=== PATIENT | male | born 1980 | race Caucasian/White ===

== ENCOUNTER 2016-12-16 09:33 | Emergency (ER) | payer SELFPAY ==
--- NOTE | 2016-12-16 11:08 | ER Document Report ---
ED General - General Chief Complaint: Hand Pain Stated Complaint: RIGHT HAND INJURY TRAVEL OUTSIDE OF THE [place] IN LAST 30 DAYS: No - HPI Patient complains to provider of: right hand injury Notes: Patient states fell injuring his right hand night prior to arrival. Patient has swelling of the MCP joint of the fifth digit on the right hand. No obvious wounds. Denies any fevers chills nausea vomiting. - Related Data Allergies/Adverse Reactions: No Known Allergies Allergy (Verified 12/16/16 09:42) Past Medical History - Social History Smoking Status: Current Every Day Smoker Chew tobacco use (# tins/day): No Frequency of alcohol use: Social Drug Abuse: None Family History: Reviewed & Not Pertinent Patient has suicidal ideation: No Patient has homicidal ideation: No Renal/ Medical History: Denies: Hx Peritoneal Dialysis GI Medical History: Reports: Hx Diverticulitis Past Surgical History: Reports: Hx Orthopedic Surgery - right hand and left knee - Immunizations Hx Diphtheria, Pertussis, Tetanus Vaccination: Yes Review of Systems - Review of Systems Constitutional: No symptoms reported EENT: No symptoms reported Cardiovascular: No symptoms reported Respiratory: No symptoms reported Gastrointestinal: No symptoms reported Genitourinary: No symptoms reported Male Genitourinary: No symptoms reported Musculoskeletal: Other - Right hand pain and swelling Skin: No symptoms reported Hematologic/Lymphatic: No symptoms reported Neurological/Psychological: No symptoms reported Physical Exam - Vital signs Vitals: Temp Pulse Resp BP Pulse Ox 98.1 F 79 16 138/96 H 97 12/16/16 09:39 12/16/16 09:39 12/16/16 09:39 12/16/16 09:39 12/16/16 09:39 Interpretation: Normal - General General appearance: Appears well, Alert - HEENT Head: Normocephalic, Atraumatic Eyes: Normal Pupils: PERRL - Respiratory Respiratory status: No respiratory distress Chest status: Nontender Breath sounds: Normal Chest palpation: Normal - Cardiovascular Rhythm: Regular Heart sounds: Normal auscultation Murmur: No - Abdominal Inspection: Normal Distension: No distension Bowel sounds: Normal Tenderness: Nontender Organomegaly: No organomegaly - Back Back: Normal, Nontender - Extremities General upper extremity: Normal inspection, Tender - Patient has tenderness of the first joint of the fifth digit on the right hand with swelling there is no open wounds no signs of open fracture. Refill and range of motion are intact distal, Normal color, Normal ROM, Normal temperature General lower extremity: Normal inspection, Nontender, Normal color, Normal ROM , Normal temperature, Normal weight bearing. No: Tonny's sign - Neurological Neuro grossly intact: Yes Cognition: Normal Orientation: AAOx4 Millen Coma Scale Eye Opening: Spontaneous Marcus Coma Scale Verbal: Oriented Millen Coma Scale Motor: Obeys Commands Millen Coma Scale Total: 15 Speech: Normal Motor strength normal: LUE, RUE, LLE, RLE Sensory: Normal - Psychological Associated symptoms: Normal affect, Normal mood - Skin Skin Temperature: Warm Skin Moisture: Dry Skin Color: Normal Course - Re-evaluation Re-evalutation: 12/16/16 15:29 Patient placed in ulnar gutter splint for his fifth metacarpal fracture encouraged follow-up with orthopedics. Patient was given pain control discharged home - Vital Signs Vital signs: Temp Pulse Resp BP Pulse Ox 98.1 F 77 16 147/99 H 95 12/16/16 11:22 12/16/16 11:22 12/16/16 11:22 12/16/16 11:22 12/16/16 11:22 Discharge - Discharge Clinical Impression: Boxers fracture Qualifiers: Encounter type: initial encounter Fracture type: closed Qualified Code(s): S62.309A - Unspecified fracture of unspecified metacarpal bone, initial encounter for closed fracture Condition: Good Disposition: HOME, SELF-CARE Instructions: Fractured Fifth Metacarpal ([facility]) Additional Instructions: Please follow-up with orthopedic provided. Return to ER if pain increases. Please continue to wear splint until you see the orthopedic doctor. You may take Tylenol and Motrin for your pain the Vicodin prescribe this for severe pain Prescriptions: Hydrocodone Bit/Acetaminophen [Hydrocodon-Acetaminophen 5-325] 1 each PO Q6 #30 tablet Forms: Return to Work Referrals: BRIGITTE BECKER MD [ACTIVE STAFF] - Follow up as needed (Call today to set up a follow-up appointment)
[2016-12-16 11:34] VITALS: BP 147/99
== END 2016-12-16 11:30 | disposition home or self-care (01) ==
LOC: ER 09:33
PROC: 2W3CX1Z Immobilization of Right Lower Arm using Splint (ICD-10-PCS; principal; 2016-12-16)
DX: S62.336A Displaced fracture of neck of fifth metacarpal bone, right hand, initial encounter for closed fracture (principal); W19.XXXA Unspecified fall, initial encounter; F17.200 Nicotine dependence, unspecified, uncomplicated; Z98.890 Other specified postprocedural states
CPT/HCPCS: 99283

== ENCOUNTER 2017-08-13 22:49 | Inpatient (IN) | payer SELFPAY ==
[2017-08-13] MEDS ORDERED: NORMAL SALINE 500 ML IV ONE (22:56)
[2017-08-13] MEDS ORDERED: ONDANSETRON 4 MG TAB.RAPDIS PO ONE (23:22)
[2017-08-13] MEDS ORDERED: MORPHINE SULFATE 10 MG/ML INJ IV ONE (23:23)
--- NOTE | 2017-08-13 23:24 | ER Document Report ---
ED Medical Screen (RME) - General Chief Complaint: Upper Abdominal Pain Stated Complaint: UPPER RIGHT ABDOMINAL PAIN Time Seen by Provider: 08/13/17 23:18 Notes: Patient is a 37-year-old male presents emergency department complaining of right upper quadrant pain sudden onset this morning. He admits to sharp stabbing right upper quadrant pain with associated nausea and vomiting. Denies any blood or coffee-ground emesis. Admits to pain radiating into his back. Denies fever or chills. Does admit to diaphoresis with emesis. Otherwise denies any other past medical history, past chest or abdominal surgical history. Patient states he is a smoker, social alcohol use and denies any illicit drug use. TRAVEL OUTSIDE OF THE [place] IN LAST 30 DAYS: No - Related Data Allergies/Adverse Reactions: No Known Allergies Allergy (Verified 08/13/17 22:53) Past Medical History Renal/ Medical History: Denies: Hx Peritoneal Dialysis GI Medical History: Reports: Hx Diverticulitis Past Surgical History: Reports: Hx Orthopedic Surgery - right hand and left knee - Immunizations Hx Diphtheria, Pertussis, Tetanus Vaccination: Yes Physical Exam - Vital signs Vitals: Temp Pulse Resp BP Pulse Ox 97.9 F 84 20 127/100 H 98 08/13/17 22:56 08/13/17 22:56 08/13/17 22:56 08/13/17 22:56 08/13/17 22:56 - Respiratory Respiratory status: No respiratory distress Chest status: Nontender Breath sounds: Normal Chest palpation: Normal - Cardiovascular Rhythm: Regular Heart sounds: Normal auscultation, S1 appreciated, S2 appreciated Gallop: None auscultated - Abdominal Inspection: Normal Distension: No distension Bowel sounds: Normal Tenderness: Lugo's sign Organomegaly: No organomegaly Course - Vital Signs Vital signs: Temp Pulse Resp BP Pulse Ox 97.9 F 84 20 127/100 H 98 08/13/17 22:56 08/13/17 22:56 08/13/17 22:56 08/13/17 22:56 08/13/17 22:56
[2017-08-13 23:51] LABS: ABSOLUTE EOSINOPHILS # (AUTO) 0.1 10^3/uL (0.0-0.6); ABSOLUTE LYMPHOCYTES (AUTO) 1.2 10^3/uL (0.5-4.7); ABSOLUTE MONOCYTES (AUTO) 0.6 10^3/uL (0.1-1.4); ABSOLUTE NEUT (AUTO) 11.1 10^3/uL (1.7-8.2); BASOPHILS % (AUTO) 0.3 % (0-2); EOSINOPHILS % (AUTO) 0.5 % (0-6); HEMATOCRIT 48.7 % (37.9-51.0); HEMOGLOBIN 17.6 g/dL (13.5-17.0); LYMPHOCYTES % (AUTO) 9.3 % (13-45); MEAN CORPUSCULAR HEMOGLOBIN 35.5 pg (27.0-33.4); MEAN CORPUSCULAR HGB CONC 36.1 g/dL (32.0-36.0); MEAN CORPUSCULAR VOLUME 98 fl (80-97); RED BLOOD COUNT 4.95 10^6/uL (4.35-5.55); RED CELL DISTRIBUTION WIDTH 13.8 % (11.5-14.0); SEGMENTED NEUTROPHILS % (AUTO) 84.9 % (42-78); WHITE BLOOD COUNT 13.1 10^3/uL (4.0-10.5)
[2017-08-13 23:52] LABS: HGB HCT DIFFERENCE 4.1
[2017-08-14 00:08] LABS: ALANINE AMINOTRANSFERASE 109 U/L (21-72); ALBUMIN 4.9 g/dL (3.5-5.0); ALKALINE PHOSPHATASE 135 U/L (38-126); ANION GAP 17 (5-19); ASPARTATE AMINO TRANSFERASE 101 U/L (17-59); BILIRUBIN,DIRECT 0.5 mg/dL (0.0-0.4); BILIRUBIN,TOTAL 1.1 mg/dL (0.2-1.3); BLOOD UREA NITROGEN 16 mg/dL (7-20); CALCIUM 10.1 mg/dL (8.4-10.2); CARBON DIOXIDE 26 mmol/L (22-30); CHLORIDE 100 mmol/L (98-107); CREATININE RESULT 0.77 mg/dL (0.52-1.25); GLUCOSE 122 mg/dL (75-110); LIPASE 842.4 U/L (23-300); POTASSIUM 4.2 mmol/L (3.6-5.0); SODIUM 142.8 mmol/L (137-145)
--- NOTE | 2017-08-14 00:35 | RADIOLOGY REPORT (SQ) ---
EXAM DESCRIPTION: U/S ABDOMEN LIMITED W/O DOP COMPLETED DATE/TIME: 08/14/2017 12:23 am REASON FOR STUDY: RUQ pain with positive murphys COMPARISON: None. TECHNIQUE: Dynamic and static grayscale images acquired of the abdomen and recorded on PACS. Additio nal selected color Doppler and spectral images recorded. LIMITATIONS: None. FINDINGS: PANCREAS: No masses. No peripancreatic edema or fluid collections. LIVER: Echotexture is coarse with increased echogenicity consistent with fatty infiltration. LIVER VASCULATURE: Normal directional flow of the main portal vein and hepatic veins. GALLBLADDER: No stones. Normal wall thickness. No pericholecystic fluid. ULTRASOUND-DETECTED LUGO'S SIGN: Positive. INTRAHEPATIC DUCTS AND COMMON DUCT: CBD and intrahepatic ducts normal caliber. No filling defects. INFERIOR VENA CAVA: Normal flow. AORTA: No aneurysm. RIGHT KIDNEY: Normal size. Normal echogenicity. No solid or suspicious masses. No hydronephrosis. No calcifications. PERITONEAL AND RIGHT PLEURAL SPACE: No ascites or effusions. OTHER: No other significant finding. IMPRESSION: FATTY INFILTRATION OF THE LIVER. Positive ultrasound detected Lugo sign. No gallston es identified. TECHNICAL DOCUMENTATION: JOB ID: [id number] [employer]- All Rights Reserved
--- NOTE | 2017-08-14 01:04 | ER Document Report ---
ED GI/ - General Chief Complaint: Upper Abdominal Pain Stated Complaint: UPPER RIGHT ABDOMINAL PAIN Time Seen by Provider: 08/13/17 23:18 Notes: Patient is a 37 year old male with sudden onset RUQ pain this am that has gotten progressively worse. Admits to nausea and vomiting with worsening right upper quadrant pain. Otherwise healthy male. Denies any previous medical issues, past surgical history. Is a current smoker but denies daily alcohol or drug use. TRAVEL OUTSIDE OF THE [place] IN LAST 30 DAYS: No - Related Data Allergies/Adverse Reactions: No Known Allergies Allergy (Verified 08/13/17 22:53) Past Medical History - Social History Smoking Status: Unknown if Ever Smoked Family History: Reviewed & Not Pertinent Renal/ Medical History: Denies: Hx Peritoneal Dialysis GI Medical History: Reports: Hx Diverticulitis Past Surgical History: Reports: Hx Orthopedic Surgery - right hand and left knee - Immunizations Hx Diphtheria, Pertussis, Tetanus Vaccination: Yes Review of Systems - Review of Systems Constitutional: No symptoms reported Cardiovascular: No symptoms reported Respiratory: No symptoms reported Gastrointestinal: See HPI -: Yes All other systems reviewed and negative Physical Exam - Vital signs Vitals: Temp Pulse Resp BP Pulse Ox 97.9 F 84 20 127/100 H 98 08/13/17 22:56 08/13/17 22:56 08/13/17 22:56 08/13/17 22:56 08/13/17 22:56 - Notes Notes: PHYSICAL EXAM GENERAL: Alert, interacts well. LUNGS: Clear to auscultation bilaterally, no wheezes, rales, or rhonchi. No respiratory distress. HEART: Regular rate and rhythm. No murmurs, gallops, or rubs. ABDOMEN: Soft, nondistended, positive Lugo sign, right upper quadrant tenderness. No edema, radial and dorsalis pedis pulses 2/4 bilaterally. No cyanosis. NEUROLOGICAL: Alert and oriented x4. Normal speech. PSYCH: Normal affect, normal mood. SKIN: Warm, dry, normal turgor. No rashes or lesions noted. Course - Re-evaluation Re-evalutation: 08/13/17 23:30 Patient is a 37-year-old male who is hemodynamically stable, no acute distress afebrile. Elevated white count of 13 with evidence of left shift. Chemistry panel concerning for common bile duct stone versus ascending cholangitis. Patient with elevated AST, ALT, alk phos with lipase of 842 but preserved bilirubin. No evidence of obstructing stone on ultrasound. Discussed case with surgeon Dr. monroe who recommends admission, n.p.o. status, MRCP IV antibiotics and fluids..discussed with the patient who agrees for hospital admission - Vital Signs Vital signs: Temp Pulse Resp BP Pulse Ox 97.9 F 84 20 127/100 H 98 08/13/17 22:56 08/13/17 22:56 08/13/17 22:56 08/13/17 22:56 08/13/17 22:56 - Laboratory Result Diagrams: 08/13/17 23:30 08/13/17 23:30 Laboratory results interpreted by me: 08/13/17 08/13/17 23:30 23:30 WBC 13.1 H Hgb 17.6 H MCV 98 H MCH 35.5 H MCHC 36.1 H Seg Neutrophils % 84.9 H Lymphocytes % 9.3 L Absolute Neutrophils 11.1 H Glucose 122 H Direct Bilirubin 0.5 H AST 101 H ALT 109 H Alkaline Phosphatase 135 H Lipase 842.4 H - Diagnostic Test Radiology reviewed: Reports reviewed Discharge - Discharge Clinical Impression: Cholecystitis Pancreatitis Qualifiers: Chronicity: acute Pancreatitis type: unspecified pancreatitis type Acute pancreatitis complication: unspecified Qualified Code(s): K85.90 - Acute pancreatitis without necrosis or infection, unspecified Condition: Stable Disposition: ADMITTED INPATIENT Unit Admitted: Surgical Floor - [place]
[2017-08-14] MEDS ORDERED: LEVOFLOXACIN 750 MG/D5W RTU 750 MG/150 ML RTUPB IV ONE (01:28)
[2017-08-14] MEDS ORDERED: HYDROMORPHONE HCL INJ/PF 2 MG/ML AMPULE IV ONE (01:35)
[2017-08-14] MEDS ORDERED: DEXTROSE 5%-1/2 NORMAL SALINE 1,000 ML with POTASSIUM CHLORIDE 20 MEQ IV PRN ×4 (01:38→01:56)
[2017-08-14] MEDS: HYDROMORPHONE HCL INJ/PF 2 MG/ML AMPULE IV PRN ×7 (02:26→22:10)
[2017-08-14] MEDS: ONDANSETRON HCL INJ/PF 4 MG/2 ML SDV IV PRN ×2 (02:27→09:07)
[2017-08-14 03:44] LABS: AMORPHOUS SEDIMENT,URINE TRACE /HPF; APPEARANCE,URINE SLIGHTLY-CLOUDY; BILIRUBIN,URINE SMALL (NEGATIVE); GLUCOSE, URINE NEGATIVE (NEGATIVE); KETONES,URINE 20 mg/dL (NEGATIVE); LEUKOCYTE ESTERASE,URINE NEGATIVE (NEGATIVE); NITRITE,URINE NEGATIVE (NEGATIVE); PROTEIN,URINE 100 mg/dL (NEGATIVE)
[2017-08-14] MEDS ORDERED: POTASSI CL 20 MEQ/50 ML RIDER 0 MEQ/0 ML RTUPB IV ONE (04:17)
[2017-08-14] MEDS ORDERED: DEXTROSE 5%-1/2 NORMAL SALINE 1,000 ML with POTASSIUM CHLORIDE 20 MEQ IV SCH ×2 (04:30)
[2017-08-14] MEDS: POTASSI CL 20 MEQ/D5-1/2NS 1L 1000 ML IV PRN ×3 (04:58→15:50)
[2017-08-14] MEDS ORDERED: KETOROLAC TROMETHAMINE INJ/PF 30 MG/1 ML SDV IV ONE (05:00)
[2017-08-14] MEDS ORDERED: NORMAL SALINE 1000 ML 250 ML IV ONE (06:31)
[2017-08-14] MEDS ORDERED: MAG HYDROX/AL HYDROX/SIMETH SUSP 30 ML UDCUP PO ONE (06:58)
--- NOTE | 2017-08-14 07:13 | HISTORY AND PHYSICAL E ---
History and Physical NAME: MO SANCHEZ : 1980 AGE: 37Y ADMITTED: 08/14/2017 ROOM: ED14 HISTORY OF PRESENT ILLNESS: The patient is a 37-year-old male patient presenting to emergency room with history of acute abdominal pain from last night, also with nausea. The pain is mostly in the right upper quadrant area and pelvic area. *------* The patient did have similar pain about several months ago and did not have any workup at that point. The patient occasionally drinks alcohol. Otherwise, no major medical problems. PAST SURGICAL HISTORY: None. REVIEW OF SYSTEMS: As per examination. PHYSICAL EXAMINATION: GENERAL: He is pleasant 37-year-old male patient, not in any distress. VITAL SIGNS: Afebrile. HEAD AND NECK EXAMINATION: No lymphadenopathy, no masses. RESPIRATORY EXAMINATION: Both lungs are clear to auscultation. CARDIOVASCULAR EXAMINATION: Heart sounds are regular, no murmurs, no gallops. ABDOMINAL EXAMINATION: Soft, tender in the upper abdomen and right upper quadrant area. No palpable masses. No palpable hernia. EXTREMITIES: Warm and well perfused. LABORATORY: White count 13.1, hemoglobin 17. *------* Sodium 142, BUN 16, creatinine 0.77, total bilirubin 2151, direct 0.5. ALT slightly elevated at 109, alkaline phosphatase 135, slightly elevated, lipase 142. He had an abnormal ultrasound, which reveals tenderness in the right upper quadrant area. No gallstones were seen. IMPRESSION: Overall pancreatitis. Uncertain whether he passed a stone. PLAN: Admission, IV hydration, start him on Levaquin. Order an MRCP to evaluate the pancreas. Based on that, further management will be planned. DICTATING PHYSICIAN: GAGANDEEP BUSTILLOS M.D. [id number] PHY#: [id number] ID: [id number] JOB#: [id number] ACCT: [id number] cc: >
--- NOTE | 2017-08-14 10:26 | RADIOLOGY REPORT (SQ) ---
EXAM DESCRIPTION: SKULL 1-3 VIEWS COMPLETED DATE/TIME: 08/14/2017 10:16 am REASON FOR STUDY: foreign body eval COMPARISON: None. NUMBER OF VIEWS: Two view. TECHNIQUE: Images of the skull acquired. LIMITATIONS: None. FINDINGS: ORBITS: No fracture. No foreign body. SINUSES: No mucosal thickening. No air fluid levels. FACIAL BONES: No fracture. OTHER: The calvarium is intact. IMPRESSION: No radiopaque foreign body is seen. TECHNICAL DOCUMENTATION: JOB ID: [id number]- All Rights Reserved
--- NOTE | 2017-08-14 10:55 | RADIOLOGY REPORT (SQ) ---
EXAM DESCRIPTION: MRI ABDOMEN WITHOUT COMPLETED DATE/TIME: 08/14/2017 10:41 am REASON FOR STUDY: pancreatitis , needs MRCP COMPARISON: None. TECHNIQUE: Noncontrast MRCP. Source and MIP images reviewed. LIMITATIONS: None. FINDINGS: GALLBLADDER: Normal. INTRAHEPATIC DUCTS: Nondilated. EXTRAHEPATIC DUCTS: Common duct is normal caliber. No dilatation of the pancreatic duct. No ductal filling defects noted. PANCREAS: Generally homogeneous, no gross mass or significant signal alteration. No surrounding infl ammatory changes or fluid. Pancreatic duct is normal. LIVER, SPLEEN, KIDNEYS, ADRENALS: No significant abnormality. VESSELS: No evidence of aneurysm. Grossly appropriate flow voids in the major vascular structures. LUNG BASES: Grossly clear. OTHER: No other significant finding. IMPRESSION: Normal MRCP. TECHNICAL DOCUMENTATION: JOB ID: [id number] [employer]- All Rights Reserved
--- NOTE | 2017-08-14 15:43 | PROGRESS NOTE E ---
Progress Note NAME: MO SANCHEZ : 1980 AGE: 37Y DATE: 08/14/2017 ROOM: 419 SUBJECTIVE: The patient has had persisting abdominal pain today. He did have a MRCP which was grossly unremarkable. No nausea or vomiting. PHYSICAL EXAMINATION: VITAL SIGNS: Stable. GENERAL: The patient in general is in mild distress. ABDOMEN: Examined. Minimal right upper quadrant tenderness with mild guarding. No peritoneal signs. No rigidity. IMAGING STUDIES: As described above. IMPRESSION: ABDOMINAL PAIN OF INEXACT ETIOLOGY, SUSPECT GASTRITIS VERSUS MILD PANCREATITIS WITH POSSIBLE ALCOHOL ABUSE COMPONENT; NO EVIDENCE OF ACUTE CHOLECYSTITIS, CHOLEDOCHOLITHIASIS. RECOMMENDATIONS: 1. Will obtain lipase level in the morning. 2. We will keep on ice chips for now. 3. Explained to patient and significant other that there are no plans for surgical intervention at this time. DICTATING PHYSICIAN: LESIA CANTRELL M.D. [id number] PHY#: [id number] ID: [id number] JOB#: [id number] ACCT: [id number] cc: >
--- NOTE | 2017-08-14 17:54 | PDOC CONSULTATION ---
Consultation Consult Date: 08/14/17 Attending physician:: LESIA CANTRELL Consult reason:: Possible delirium tremens History of Present Illness Admission Date/PCP: 08/14/17 13:55 History of Present Illness: MO SANCHEZ is a 37 year old male Past Medical History Cardiac Medical History: Reports: None Pulmonary Medical History: Reports: None EENT Medical History: Reports: None Neurological Medical History: Reports: None Endocrine Medical History: Reports: None Renal/ Medical History: Reports: None Malignancy Medical History: Reports: None GI Medical History: Reports: Diverticulitis Musculoskeltal Medical History: Reports: None Skin Medical History: Reports: None Psychiatric Medical History: Reports: Alcohol Dependency Hematology: Reports: None Infectious Medical History: Reports: None Past Surgical History Past Surgical History: Reports: Orthopedic Surgery - right hand and left knee Social History Information Source: Patient Lives with: Spouse/Significant other Smoking Status: Current Some Day Smoker Cigarettes Packs Per Day: 1 Number of Years Smokin Frequency of Alcohol Use: Occasional - 3 drinks per day Hx Recreational Drug Use: Yes Drugs: Marijuana Hx Prescription Drug Abuse: No - Advance Directive Resuscitation Status: Full Code Family History Family History: Father in his 50s from traumatic injury. Mother is in her 50s and is healthy. Parental Family History Reviewed: Yes Children Family History Reviewed: No Sibling(s) Family History Reviewed.: No Medication/Allergy Home Medications: No Home Medications 08/14/17 Allergies/Adverse Reactions: No Known Allergies Allergy (Verified 08/13/17 22:53) Review of Systems Constitutional: ABSENT: chills, fever(s), headache(s), weight gain, weight loss Eyes: ABSENT: visual disturbances Ears: ABSENT: hearing changes Cardiovascular: ABSENT: chest pain, dyspnea on exertion, edema, orthropnea, palpitations Respiratory: ABSENT: cough, hemoptysis Gastrointestinal: PRESENT: abdominal pain, nausea. ABSENT: constipation, diarrhea, hematemesis, hematochezia, vomiting Genitourinary: ABSENT: dysuria, hematuria Musculoskeletal: PRESENT: back pain. ABSENT: joint swelling Integumentary: ABSENT: rash, wounds Neurological: PRESENT: other - Has been tremulous Psychiatric: ABSENT: anxiety, depression Endocrine: ABSENT: cold intolerance, heat intolerance, polydipsia, polyuria Hematologic/Lymphatic: ABSENT: easy bleeding, easy bruising Physical Exam Vital Signs: Temp Pulse Resp BP Pulse Ox 98.4 F 76 18 128/84 H 98 08/14/17 12:05 08/14/17 12:05 08/14/17 12:05 08/14/17 12:05 08/14/17 12:05 Intake & Output 08/13/17 08/14/17 08/15/17 06:59 06:59 06:59 Intake Total 0 Balance 0 General appearance: PRESENT: no acute distress, well-developed, well-nourished Head exam: PRESENT: atraumatic, normocephalic Eye exam: PRESENT: conjunctiva pink, EOMI, PERRLA. ABSENT: scleral icterus Ear exam: PRESENT: normal external ear exam Mouth exam: PRESENT: moist, tongue midline Neck exam: ABSENT: carotid bruit, JVD, lymphadenopathy, thyromegaly Respiratory exam: PRESENT: clear to auscultation magnolia. ABSENT: rales, rhonchi, wheezes Cardiovascular exam: PRESENT: RRR. ABSENT: diastolic murmur, rubs, systolic murmur Pulses: PRESENT: normal dorsalis pedis pul Vascular exam: PRESENT: normal capillary refill GI/Abdominal exam: PRESENT: normal bowel sounds, soft, tenderness - Mild epigastric tenderness. ABSENT: distended, guarding, mass, organolmegaly, rebound Rectal exam: PRESENT: deferred Extremities exam: ABSENT: calf tenderness, clubbing, pedal edema Neurological exam: PRESENT: alert, awake, oriented to person, oriented to place , oriented to time, oriented to situation, CN II-XII grossly intact, other - Tremulous. ABSENT: motor sensory deficit Psychiatric exam: PRESENT: appropriate affect Skin exam: PRESENT: dry, intact, warm. ABSENT: cyanosis, rash Results Impressions: Abdomen Ultrasound 08/13/17 23:22 IMPRESSION: FATTY INFILTRATION OF THE LIVER. Positive ultrasound detected Lugo sign. No gallstones identified. Abdomen MRI 08/14/17 00:00 IMPRESSION: Normal MRCP. Skull X-Ray 08/14/17 00:00 IMPRESSION: No radiopaque foreign body is seen. Assessment & Plan - Diagnosis (1) Alcohol use disorder, mild, abuse Is this a current diagnosis for this admission?: Yes Plan: The patient is somewhat tremulous. Will start him on Raoul Ativan in addition we will also give as needed Ativan. (2) Pancreatitis Qualifiers: Chronicity: acute Pancreatitis type: unspecified pancreatitis type Acute pancreatitis complication: unspecified Qualified Code(s): K85.90 - Acute pancreatitis without necrosis or infection, unspecified Is this a current diagnosis for this admission?: Yes Plan: This is being managed by surgery. Patient is n.p.o. and given IV fluids. - Time Time Spent: 50 to 70 Minutes - Inpatient Certification Medical Necessity: Need For IV Fluids, Need for Pain Control
[2017-08-14] MEDS: LORAZEPAM INJ 2 MG/1 ML VIAL IV PRN (17:58)
[2017-08-14] MEDS: LORAZEPAM 1 MG TABLET PO SCH ×2 (18:00→23:59)
[2017-08-14] MEDS: LEVOFLOXACIN 750 MG/D5W RTU 750 MG/150 ML RTUPB IV SCH (21:01)
[2017-08-15] MEDS: HYDROMORPHONE HCL INJ/PF 2 MG/ML AMPULE IV PRN ×7 (02:10→22:19)
[2017-08-15] MEDS: POTASSI CL 20 MEQ/D5-1/2NS 1L 1000 ML IV PRN ×2 (02:15→13:19)
[2017-08-15] MEDS: LORAZEPAM 1 MG TABLET PO SCH ×3 (05:21→17:46)
[2017-08-15] MEDS ORDERED: NORMAL SALINE 1000 ML 1,000 ML with THIAMINE HCL 100 MG, MVI, ADULT NO.1 WITH VIT K 10 ... IV PRN ×4 (09:01)
--- NOTE | 2017-08-15 09:07 | PDOC PROGRESS REPORT ---
Subjective Progress Note for:: 08/15/17 Subjective:: Patient pain goes on and off. Tremors improved with Ativan. Patient reports symptoms started after moderate drinking with friends at home with alcohol. Denies chills or fever. There is no diarrhea. Patient remains n.p.o. Abdominal pain slightly improved. Physical Exam Vital Signs: Temp Pulse Resp BP Pulse Ox 98.6 F 82 17 134/92 H 98 08/15/17 07:46 08/15/17 07:46 08/15/17 07:46 08/15/17 07:46 08/15/17 07:46 Intake & Output 08/14/17 08/15/17 08/16/17 06:59 06:59 06:59 Intake Total 2452 Balance 2452 General appearance: PRESENT: no acute distress, cooperative Head exam: PRESENT: normocephalic Eye exam: PRESENT: EOMI Mouth exam: PRESENT: moist, neck supple Neck exam: ABSENT: JVD Respiratory exam: PRESENT: clear to auscultation magnolia Cardiovascular exam: PRESENT: RRR GI/Abdominal exam: PRESENT: soft, tenderness - Epigastric and periumbilical. ABSENT: distended Extremities exam: ABSENT: pedal edema Neurological exam: PRESENT: alert, awake, oriented to situation Skin exam: PRESENT: dry, warm. ABSENT: cyanosis Results Laboratory Results: 08/15/17 04:50 Lipase 1060.3 H Impressions: Abdomen Ultrasound 08/13/17 23:22 IMPRESSION: FATTY INFILTRATION OF THE LIVER. Positive ultrasound detected Lugo sign. No gallstones identified. Abdomen MRI 08/14/17 00:00 IMPRESSION: Normal MRCP. Skull X-Ray 08/14/17 00:00 IMPRESSION: No radiopaque foreign body is seen. Assessment & Plan - Diagnosis (1) Alcohol use disorder, mild, abuse Is this a current diagnosis for this admission?: Yes (2) Pancreatitis Qualifiers: Chronicity: acute Pancreatitis type: unspecified pancreatitis type Acute pancreatitis complication: unspecified Qualified Code(s): K85.90 - Acute pancreatitis without necrosis or infection, unspecified Is this a current diagnosis for this admission?: Yes (3) Transaminitis Is this a current diagnosis for this admission?: Yes - Time Time Spent with patient: 25-34 minutes - Plan Summary Plan Summary: Keep the patient n.p.o. Recheck WBC amylase and lipase in the morning as well as electrolytes. Continue IV fluids. Continue Ativan. Begin supplemental thiamine folic acid and multivitamin. Continue supportive care.
--- NOTE | 2017-08-15 10:38 | PROGRESS NOTE E ---
Progress Note NAME: MO SANCHEZ : 1980 AGE: 37Y DATE: 08/15/2017 ROOM: 419 SUBJECTIVE: The patient's abdominal pain seems to have subsided. He denies any daily alcohol intake. OBJECTIVE: He is alert and oriented x3. His lipase this morning went up from 842 to 1060 this morning. PLAN: I will keep him n.p.o. for the time being and repeat all the blood work in the a.m. Continue for preventive withdrawal symptoms. I will ask Medicine to take over patient's care. DICTATING PHYSICIAN: NATALIE WALKER M.D. [id number] PHY#: [id number] ID: [id number] JOB#: [id number] ACCT: [id number] cc: >
[2017-08-15] MEDS ORDERED: NORMAL SALINE 1000 ML 1,000 ML with THIAMINE HCL 100 MG, MVI, ADULT NO.1 WITH VIT K 10 ... IV ONE ×4 (18:00)
[2017-08-15] MEDS ORDERED: LANSOPRAZOLE 30 MG TAB.RAP.DR PO ONE (20:00)
[2017-08-15] MEDS: LEVOFLOXACIN 750 MG/D5W RTU 750 MG/150 ML RTUPB IV SCH (22:19)
[2017-08-16] MEDS: LORAZEPAM 1 MG TABLET PO SCH ×5 (00:33→23:29)
[2017-08-16] MEDS: HYDROMORPHONE HCL INJ/PF 2 MG/ML AMPULE IV PRN ×8 (01:24→23:29)
[2017-08-16] MEDS: LANSOPRAZOLE 30 MG TAB.RAP.DR PO SCH ×2 (05:10→16:07)
[2017-08-16 05:11] LABS: HEMATOCRIT 40.5 % (37.9-51.0); HGB HCT DIFFERENCE 3.3; MEAN CORPUSCULAR VOLUME 98 fl (80-97); RED BLOOD COUNT 4.12 10^6/uL (4.35-5.55)
[2017-08-16 05:12] LABS: HEMOGLOBIN 14.6 g/dL (13.5-17.0); MEAN CORPUSCULAR HEMOGLOBIN 35.3 pg (27.0-33.4); RED CELL DISTRIBUTION WIDTH 13.2 % (11.5-14.0)
[2017-08-16 05:17] LABS: AMYLASE 136 U/L (30-110); ANION GAP 13 (5-19); BLOOD UREA NITROGEN 12 mg/dL (7-20); CALCIUM 9.3 mg/dL (8.4-10.2); CARBON DIOXIDE 24 mmol/L (22-30); CHLORIDE 103 mmol/L (98-107); CREATININE RESULT 0.76 mg/dL (0.52-1.25); GLUCOSE 82 mg/dL (75-110); LIPASE 857.6 U/L (23-300); POTASSIUM 4.6 mmol/L (3.6-5.0); SODIUM 139.6 mmol/L (137-145)
[2017-08-16] MEDS: POTASSI CL 20 MEQ/D5-1/2NS 1L 1000 ML IV PRN ×2 (07:07→17:49)
--- NOTE | 2017-08-16 09:54 | PDOC PROGRESS REPORT ---
Subjective Progress Note for:: 08/16/17 Subjective:: Abdominal pain is better. No nausea or vomiting. Tremors still persist but no reported agitation nor hallucinations. Denies any chills fever nor shortness of breath. Patient denies diarrhea. Lipase level trended down. Physical Exam Vital Signs: Temp Pulse Resp BP Pulse Ox 98.7 F 71 12 112/75 98 08/16/17 08:00 08/16/17 08:00 08/16/17 08:00 08/16/17 08:00 08/16/17 08:00 Intake & Output 08/15/17 08/16/17 08/17/17 06:59 06:59 06:59 Intake Total 2452 2201 Balance 2452 2201 General appearance: PRESENT: no acute distress, cooperative Head exam: PRESENT: normocephalic Eye exam: PRESENT: EOMI Mouth exam: PRESENT: moist, neck supple Neck exam: ABSENT: JVD Respiratory exam: PRESENT: clear to auscultation magnolia. ABSENT: rhonchi, wheezes Cardiovascular exam: PRESENT: RRR. ABSENT: gallop GI/Abdominal exam: PRESENT: normal bowel sounds, soft, tenderness - Periumbilical and epigastric area Extremities exam: ABSENT: pedal edema Neurological exam: PRESENT: alert, awake, oriented to situation, other - Tremors positive bilateral slightly increased Skin exam: PRESENT: dry, warm. ABSENT: cyanosis Results Laboratory Results: 08/16/17 04:37 08/16/17 04:37 08/16/17 08/16/17 04:37 04:37 WBC 6.0 RBC 4.12 L Hgb 14.6 D Hct 40.5 MCV 98 H MCH 35.3 H MCHC 36.0 RDW 13.2 Plt Count 156 Sodium 139.6 Potassium 4.6 Chloride 103 Carbon Dioxide 24 Anion Gap 13 BUN 12 Creatinine 0.76 Est GFR ( Amer) > 60 Est GFR (Non-Af Amer) > 60 Glucose 82 Calcium 9.3 Amylase 136 H Lipase 857.6 H Impressions: Abdomen Ultrasound 08/13/17 23:22 IMPRESSION: FATTY INFILTRATION OF THE LIVER. Positive ultrasound detected Lugo sign. No gallstones identified. Abdomen MRI 08/14/17 00:00 IMPRESSION: Normal MRCP. Skull X-Ray 08/14/17 00:00 IMPRESSION: No radiopaque foreign body is seen. Assessment & Plan - Diagnosis (1) Alcohol use disorder, mild, abuse Is this a current diagnosis for this admission?: Yes (2) Pancreatitis Qualifiers: Chronicity: acute Pancreatitis type: unspecified pancreatitis type Acute pancreatitis complication: unspecified Qualified Code(s): K85.90 - Acute pancreatitis without necrosis or infection, unspecified Is this a current diagnosis for this admission?: Yes (3) Transaminitis Is this a current diagnosis for this admission?: Yes - Time Time Spent with patient: 25-34 minutes - Plan Summary Plan Summary: Patient having withdrawal. We will increase the Ativan scheduled orally. Continue as needed IV Ativan and IV hydration and supplements. We will begin clear liquid diet today and recheck lipase level in the morning. We will continue to follow. Continue supportive care.
--- NOTE | 2017-08-16 18:38 | PROGRESS NOTE E ---
Progress Note NAME: MO SANCHEZ : 1980 AGE: 37Y DATE: 08/16/2017 ROOM: 419 SUBJECTIVE: He feels a little bit better though conveyor tender at the epigastric area. His lipase is trending down to 857 from 1060 yesterday and his white count is down to normal at 6000. PLAN: I agreed to continue with the clear liquids and continue with anti-withdrawal management. DICTATING PHYSICIAN: NATALIE WALKER M.D. [id number] PHY#: [id number] ID: [id number] JOB#: [id number] ACCT: [id number] cc: >
[2017-08-17] MEDS: HYDROMORPHONE HCL INJ/PF 2 MG/ML AMPULE IV PRN ×6 (03:28→21:54)
[2017-08-17] MEDS: POTASSI CL 20 MEQ/D5-1/2NS 1L 1000 ML IV PRN (03:30)
[2017-08-17 04:28] LABS: HEMOGLOBIN 15.1 g/dL (13.5-17.0); HGB HCT DIFFERENCE 3.3; MEAN CORPUSCULAR HEMOGLOBIN 35.5 pg (27.0-33.4); MEAN CORPUSCULAR VOLUME 99 fl (80-97); RED BLOOD COUNT 4.26 10^6/uL (4.35-5.55); RED CELL DISTRIBUTION WIDTH 13.9 % (11.5-14.0); WHITE BLOOD COUNT 6.3 10^3/uL (4.0-10.5)
[2017-08-17 05:06] LABS: AMYLASE 175 U/L (30-110); ANION GAP 13 (5-19); BLOOD UREA NITROGEN 10 mg/dL (7-20); CALCIUM 9.1 mg/dL (8.4-10.2); CARBON DIOXIDE 24 mmol/L (22-30); CHLORIDE 104 mmol/L (98-107); GLUCOSE 104 mg/dL (75-110); LIPASE 1366.7 U/L (23-300); POTASSIUM 4.6 mmol/L (3.6-5.0)
[2017-08-17] MEDS: LANSOPRAZOLE 30 MG TAB.RAP.DR PO SCH ×2 (05:19→17:49)
[2017-08-17] MEDS: LORAZEPAM 1 MG TABLET PO SCH ×3 (05:19→17:49)
[2017-08-17] MEDS ORDERED: NORMAL SALINE 1000 ML 1,000 ML IV PRN (15:11)
--- NOTE | 2017-08-17 15:15 | PDOC PROGRESS REPORT ---
Subjective Progress Note for:: 08/17/17 Subjective:: Patient is doing better. Patient admits having a lot of anxiety even before. Patient states that he will have some tremors intermittently at home even when not drinking. He has panic attacks and develop more tremors when he is anxious at home. Otherwise no reported hallucinations agitation or aggressive behavior. Physical Exam Vital Signs: Temp Pulse Resp BP Pulse Ox 98.2 F 91 16 120/87 H 99 08/17/17 11:35 08/17/17 11:35 08/17/17 11:35 08/17/17 11:35 08/17/17 11:35 Intake & Output 08/16/17 08/17/17 08/18/17 06:59 06:59 06:59 Intake Total 2201 1557 Balance 2201 1557 General appearance: PRESENT: no acute distress, cooperative Head exam: PRESENT: normocephalic Eye exam: PRESENT: EOMI Mouth exam: PRESENT: moist, neck supple Neck exam: ABSENT: JVD Respiratory exam: PRESENT: clear to auscultation magnolia Cardiovascular exam: PRESENT: RRR. ABSENT: gallop GI/Abdominal exam: PRESENT: normal bowel sounds, soft Neurological exam: PRESENT: alert, awake, oriented to person, oriented to place , oriented to time, oriented to situation Skin exam: PRESENT: dry, warm. ABSENT: cyanosis Results Laboratory Results: 08/17/17 04:07 08/17/17 04:07 08/17/17 08/17/17 04:07 04:07 WBC 6.3 RBC 4.26 L Hgb 15.1 Hct 42.0 MCV 99 H MCH 35.5 H MCHC 36.0 RDW 13.9 Plt Count 188 Sodium 141.0 Potassium 4.6 Chloride 104 Carbon Dioxide 24 Anion Gap 13 BUN 10 Creatinine 0.70 Est GFR ( Amer) > 60 Est GFR (Non-Af Amer) > 60 Glucose 104 Calcium 9.1 Amylase 175 H Lipase 1366.7 H Impressions: Abdomen Ultrasound 08/13/17 23:22 IMPRESSION: FATTY INFILTRATION OF THE LIVER. Positive ultrasound detected Lugo sign. No gallstones identified. Abdomen MRI 08/14/17 00:00 IMPRESSION: Normal MRCP. Skull X-Ray 08/14/17 00:00 IMPRESSION: No radiopaque foreign body is seen. Assessment & Plan - Diagnosis (1) Alcohol use disorder, mild, abuse Is this a current diagnosis for this admission?: Yes (2) Pancreatitis Qualifiers: Chronicity: acute Pancreatitis type: unspecified pancreatitis type Acute pancreatitis complication: unspecified Qualified Code(s): K85.90 - Acute pancreatitis without necrosis or infection, unspecified Is this a current diagnosis for this admission?: Yes (3) Transaminitis Is this a current diagnosis for this admission?: Yes - Time Time Spent with patient: 15-24 minutes - Plan Summary Plan Summary: Discontinue potassium on the IV and keep the patient normal saline. Lipase went up we will keep him on clear liquid diet and recheck lipase level in the morning. In the meantime I will wean Ativan, decrease scheduled oral dose. Continue supplemental thiamine folic acid and multivitamin. Continue supportive care.
--- NOTE | 2017-08-17 15:27 | PDOC PROGRESS REPORT ---
Subjective Progress Note for:: 08/17/17 Subjective:: abdominal pain markedly improved.. Physical Exam Vital Signs: Temp Pulse Resp BP Pulse Ox 98.2 F 91 16 120/87 H 99 08/17/17 11:35 08/17/17 11:35 08/17/17 11:35 08/17/17 11:35 08/17/17 11:35 Intake & Output 08/16/17 08/17/17 08/18/17 06:59 06:59 06:59 Intake Total 2201 1557 Balance 2201 1557 General appearance: PRESENT: no acute distress, cooperative Respiratory exam: PRESENT: clear to auscultation magnolia Cardiovascular exam: PRESENT: RRR GI/Abdominal exam: PRESENT: other - Soft, mildly distended, mild epigastric abdominal tenderness no right upper quadrant abdominal tenderness Results Laboratory Results: 08/17/17 04:07 08/17/17 04:07 08/17/17 08/17/17 04:07 04:07 WBC 6.3 RBC 4.26 L Hgb 15.1 Hct 42.0 MCV 99 H MCH 35.5 H MCHC 36.0 RDW 13.9 Plt Count 188 Sodium 141.0 Potassium 4.6 Chloride 104 Carbon Dioxide 24 Anion Gap 13 BUN 10 Creatinine 0.70 Est GFR ( Amer) > 60 Est GFR (Non-Af Amer) > 60 Glucose 104 Calcium 9.1 Amylase 175 H Lipase 1366.7 H Impressions: Abdomen Ultrasound 08/13/17 23:22 IMPRESSION: FATTY INFILTRATION OF THE LIVER. Positive ultrasound detected Lugo sign. No gallstones identified. Abdomen MRI 08/14/17 00:00 IMPRESSION: Normal MRCP. Skull X-Ray 08/14/17 00:00 IMPRESSION: No radiopaque foreign body is seen. Assessment & Plan - Diagnosis (1) Pancreatitis Qualifiers: Chronicity: acute Pancreatitis type: unspecified pancreatitis type Acute pancreatitis complication: unspecified Qualified Code(s): K85.90 - Acute pancreatitis without necrosis or infection, unspecified Is this a current diagnosis for this admission?: Yes Plan: Likely alcohol induced. There is no sludge nor gallstones seen on ultrasound. He has no right upper quadrant abdominal tenderness. He has no gallbladder wall thickening and no pericholecystic fluid therefore high do not think he has cholecystitis. I do not think his pancreatitis is biliary in origin therefore I do not recommend cholecystectomy. Recommend continuation of clear liquids for now until at least his enzymes have improved. Will transfer the patient to the hospitalist service since there is no surgical need at this time.
[2017-08-17] MEDS: LORAZEPAM INJ 2 MG/1 ML VIAL IV PRN (23:53)
[2017-08-18] MEDS: LORAZEPAM 1 MG TABLET PO SCH ×2 (01:34→02:00)
[2017-08-18] MEDS: HYDROMORPHONE HCL INJ/PF 2 MG/ML AMPULE IV PRN (02:01)
[2017-08-18] MEDS ORDERED: LORAZEPAM INJ 2 MG/1 ML VIAL IV ONE (04:03)
[2017-08-18 05:31] LABS: HEMATOCRIT 40.2 % (37.9-51.0); HEMOGLOBIN 14.6 g/dL (13.5-17.0); HGB HCT DIFFERENCE 3.6; MEAN CORPUSCULAR HEMOGLOBIN 35.7 pg (27.0-33.4); MEAN CORPUSCULAR HGB CONC 36.3 g/dL (32.0-36.0); MEAN CORPUSCULAR VOLUME 98 fl (80-97); RED BLOOD COUNT 4.09 10^6/uL (4.35-5.55); RED CELL DISTRIBUTION WIDTH 13.6 % (11.5-14.0); WHITE BLOOD COUNT 5.7 10^3/uL (4.0-10.5)
[2017-08-18] MEDS: LANSOPRAZOLE 30 MG TAB.RAP.DR PO SCH (05:38)
[2017-08-18 05:40] LABS: AMYLASE 180 U/L (30-110); ANION GAP 16 (5-19); BLOOD UREA NITROGEN 7 mg/dL (7-20); CALCIUM 9.3 mg/dL (8.4-10.2); CARBON DIOXIDE 21 mmol/L (22-30); CHLORIDE 107 mmol/L (98-107); CREATININE RESULT 0.72 mg/dL (0.52-1.25); GLUCOSE 92 mg/dL (75-110); LIPASE 1235.1 U/L (23-300); POTASSIUM 3.9 mmol/L (3.6-5.0); SODIUM 143.5 mmol/L (137-145)
[2017-08-18] MEDS: LORAZEPAM INJ 2 MG/1 ML VIAL IV PRN (08:30)
[2017-08-18 09:09] VITALS: BP 130/88
--- NOTE | 2017-08-18 17:00 | PDOC DISCHARGE SUMMARY ---
General - Admit/Disc Date/PCP Admission Date/Primary Care Provider: 08/14/17 13:55 Discharge Date: 08/18/17 - Discharge Diagnosis (1) Alcohol use disorder, mild, abuse Is this a current diagnosis for this admission?: Yes (2) Pancreatitis Is this a current diagnosis for this admission?: Yes (3) Transaminitis Is this a current diagnosis for this admission?: Yes - Additional Information Resuscitation Status: Full Code Home Medications: No Home Medications 08/14/17 Additional Information: Patient left the hospital without notifying anyone. History of Present Illness History of Present Illness: MO SANCHEZ is a 37 year old male Patient is a 37 year old male with sudden onset RUQ pain this am that has gotten progressively worse. Admits to nausea and vomiting with worsening right upper quadrant pain. Otherwise healthy male. Denies any previous medical issues, past surgical history. Is a current smoker but denies daily alcohol or drug use. In the emergency room patient was found to have elevated lipase and right upper quadrant pain. Liver functions were also elevated. The patient was admitted under surgical service. Patient was found to have positive Lugo sign on abdominal ultrasound. Hospital Course Hospital Course: The patient was admitted to the medical floor. Patient was kept n.p.o. by surgical service and analgesics were given intravenously for pain control. Patient underwent MRCP but essentially unremarkable. The patient's lipase was noted to increase. Medicine was consulted for possible alcohol related pancreatitis and withdrawal. The patient was placed on supplemental thiamine folic acid and multivitamin as well as Ativan as needed and scheduled for withdrawal symptoms. Eventually the patient's abdominal pain and lipase level trended down and the patient was started on diet. He has intermittent tremors attributed to withdrawal. In terms of his withdrawal symptoms he was stable. In terms of his abdominal pain it has improved and he was begun on liquid diet. His abdominal discomfort improve as well. However his lipase level started to increase. He was maintained on IV fluids as well as Ativan and pain management. On the day when the patient left her his lipase level is still elevated but slightly improved compared to the prior day. Patient reportedly confused by the staff and given intermittent Ativan. Eventually patient wanted to leave the hospital but advised to stay at least to evaluate for to continue trending down of the lipase. However decided to leave the hospital without permission and without notifying staff. No instructions were therefore given as he absconded. Physical Exam Vital Signs: Temp Pulse Resp BP Pulse Ox 98.1 F 92 17 130/88 H 100 08/18/17 07:22 08/18/17 07:22 08/18/17 07:22 08/18/17 07:22 08/18/17 07:22 Intake & Output 08/17/17 08/18/17 08/19/17 06:59 06:59 06:59 Intake Total 1557 1840 Balance 1557 1840 Exam: Patient left the hospital without permission Results Laboratory Results: 08/18/17 05:13 08/18/17 05:13 08/18/17 08/18/17 05:13 05:13 WBC 5.7 RBC 4.09 L Hgb 14.6 Hct 40.2 MCV 98 H MCH 35.7 H MCHC 36.3 H RDW 13.6 Plt Count 180 Sodium 143.5 Potassium 3.9 Chloride 107 Carbon Dioxide 21 L Anion Gap 16 BUN 7 Creatinine 0.72 Est GFR ( Amer) > 60 Est GFR (Non-Af Amer) > 60 Glucose 92 Calcium 9.3 Amylase 180 H Lipase 1235.1 H Impressions: Abdomen Ultrasound 08/13/17 23:22 IMPRESSION: FATTY INFILTRATION OF THE LIVER. Positive ultrasound detected Lugo sign. No gallstones identified. Abdomen MRI 08/14/17 00:00 IMPRESSION: Normal MRCP. Skull X-Ray 08/14/17 00:00 IMPRESSION: No radiopaque foreign body is seen. Qualifiers PATEINT BEING DISCHARGED WITH ANY OF THE FOLLOWING DIAGNOSIS?: No Plan Discharge Plan: Patient left the hospital without permission. No instructions were therefore given or accomplished. Time Spent: Less than 30 Minutes
== END 2017-08-18 12:05 | disposition left against medical advice (07) | DRG 439 ==
LOC: ER 22:49 → EH 08-14 01:49 → UNDOADMOB 08-14 01:49 → 4W 08-14 08:42 → EH 08-14 08:42 → 4W 08-14 09:24 → OBSVTOIN 08-14 13:55
PROVIDERS: ADMIT Colon & Rectal Surgery; ATTEND Colon & Rectal Surgery
DX: K85.20 Alcohol induced acute pancreatitis without necrosis or infection (principal); F10.239 Alcohol dependence with withdrawal, unspecified; F17.210 Nicotine dependence, cigarettes, uncomplicated; R74.0 Nonspecific elevation of levels of transaminase and lactic acid dehydrogenase [LDH]
CPT/HCPCS: 36415; 70250; 74181; 76705; 80048; 80053; 81001; 82150; 83690; 85025; 85027; 99285; J1170; J1885; J1956; J2060; J2270; J2405; J3411; J3480; J3490; J7030; J7040; S0119

== ENCOUNTER 2017-12-08 10:50 | Inpatient (IN) | payer SELFPAY ==
[2017-12-08] MEDS ORDERED: HYDROMORPHONE HCL INJ/PF 2 MG/ML AMPULE IV ONE ×3 (12:29→15:41)
[2017-12-08] MEDS ORDERED: ONDANSETRON HCL INJ/PF 4 MG/2 ML SDV IV ONE (12:29)
--- NOTE | 2017-12-08 12:29 | ER Document Report ---
ED Medical Screen (RME) - General Chief Complaint: Abdominal Pain Stated Complaint: STOMACH PAIN Time Seen by Provider: 12/08/17 12:28 Mode of Arrival: Ambulatory Information source: Patient Notes: 37-year-old male history of pancreatitis secondary to alcohol use presents with complaints of abdominal pain. Patient notes he has had nausea vomiting abdominal pain after drinking. I have greeted and performed a rapid initial assessment of this patient. A comprehensive ED assessment and evaluation of the patient, analysis of test results and completion of the medical decision making process will be conducted by additional ED providers. PHYSICAL EXAMINATION: GENERAL: Well-appearing, well-nourished and in mild distress HEAD: Atraumatic, normocephalic. EYES: Pupils equal round extraocular movements intact, conjunctiva are normal. ENT: Nares patent NECK: Normal range of motion Abdominal exam: Generalized tenderness LUNGS: No respiratory distress Musculoskeletal: Normal range of motion NEUROLOGICAL: Normal speech, normal gait. PSYCH: Normal mood, normal affect. SKIN: Warm, Dry, normal turgor, no rashes or lesions noted. TRAVEL OUTSIDE OF THE [place] IN LAST 30 DAYS: No - Related Data Allergies/Adverse Reactions: No Known Allergies Allergy (Verified 12/08/17 10:50) Past Medical History Renal/ Medical History: Denies: Hx Peritoneal Dialysis GI Medical History: Reports: Hx Diverticulitis Past Surgical History: Reports: Hx Orthopedic Surgery - right hand and left knee - Immunizations Hx Diphtheria, Pertussis, Tetanus Vaccination: Yes History of Influenza Vaccine for 07/2017 - 12/2017 Season: Refused Physical Exam - Vital signs Vitals: Temp Pulse Resp BP Pulse Ox 97.5 F 71 16 149/102 H 98 12/08/17 10:56 12/08/17 10:56 12/08/17 10:56 12/08/17 10:56 12/08/17 10:56 Course - Vital Signs Vital signs: Temp Pulse Resp BP Pulse Ox 97.5 F 71 16 149/102 H 98 12/08/17 10:56 12/08/17 10:56 12/08/17 10:56 12/08/17 10:56 12/08/17 10:56
[2017-12-08 13:05] LABS: ABSOLUTE BASOPHILS # (AUTO) 0.1 10^3/uL (0.0-0.2); ABSOLUTE LYMPHOCYTES (AUTO) 0.8 10^3/uL (0.5-4.7); ABSOLUTE MONOCYTES (AUTO) 0.6 10^3/uL (0.1-1.4); ABSOLUTE NEUT (AUTO) 13.6 10^3/uL (1.7-8.2); BASOPHILS % (AUTO) 0.4 % (0-2); EOSINOPHILS % (AUTO) 0.1 % (0-6); HEMATOCRIT 48.8 % (37.9-51.0); LYMPHOCYTES % (AUTO) 5.3 % (13-45); MEAN CORPUSCULAR HEMOGLOBIN 33.7 pg (27.0-33.4); MEAN CORPUSCULAR HGB CONC 34.8 g/dL (32.0-36.0); MEAN CORPUSCULAR VOLUME 97 fl (80-97); MONOCYTES % (AUTO) 4.1 % (3-13); PLATELET COUNT 236 10^3/uL (150-450); RED BLOOD COUNT 5.05 10^6/uL (4.35-5.55); RED CELL DISTRIBUTION WIDTH 13.2 % (11.5-14.0); SEGMENTED NEUTROPHILS % (AUTO) 90.1 % (42-78); TOTAL CELLS COUNTED % (AUTO) 100 %; WHITE BLOOD COUNT 15.1 10^3/uL (4.0-10.5)
[2017-12-08 13:27] LABS: ALANINE AMINOTRANSFERASE 75 U/L (21-72); ALBUMIN 4.3 g/dL (3.5-5.0); ALKALINE PHOSPHATASE 95 U/L (38-126); ANION GAP 12 (5-19); ASPARTATE AMINO TRANSFERASE 68 U/L (17-59); BILIRUBIN,DIRECT 0.2 mg/dL (0.0-0.4); BILIRUBIN,TOTAL 0.7 mg/dL (0.2-1.3); BLOOD UREA NITROGEN 14 mg/dL (7-20); CARBON DIOXIDE 26 mmol/L (22-30); CHLORIDE 105 mmol/L (98-107); GLUCOSE 141 mg/dL (75-110); LIPASE 1990.2 U/L (23-300); POTASSIUM 3.7 mmol/L (3.6-5.0); SODIUM 142.6 mmol/L (137-145); TOTAL PROTEIN 6.6 g/dL (6.3-8.2)
[2017-12-08] MEDS: NORMAL SALINE 1000 ML 1,000 ML IV PRN ×5 (14:20→20:11)
--- NOTE | 2017-12-08 14:32 | ER Document Report ---
ED GI/ - General Chief Complaint: Abdominal Pain Stated Complaint: STOMACH PAIN Time Seen by Provider: 12/08/17 12:28 Mode of Arrival: Ambulatory Notes: The patient is a 37 yo male, PMHx daily ETOH drinker and intermittent cocaine user, prior history of pancreatitis, presents with 12 hours of epigastric pain, nausea and vomiting, similar to his prior pancreatitis episodes. His last alcohol drink was last night and he has no signs of withdrawal at this time. He denies hematemesis, fevers, chest pain, short of breath, diarrhea, constipation, back pain or urinary symptoms. TRAVEL OUTSIDE OF THE [place] IN LAST 30 DAYS: No - Related Data Allergies/Adverse Reactions: No Known Allergies Allergy (Verified 12/08/17 10:50) Past Medical History - General Information source: Patient - Social History Smoking Status: Current Every Day Smoker Chew tobacco use (# tins/day): No Frequency of alcohol use: Social Drug Abuse: Cocaine, Marijuana Family History: Reviewed & Not Pertinent Patient has suicidal ideation: No Patient has homicidal ideation: No Renal/ Medical History: Denies: Hx Peritoneal Dialysis GI Medical History: Reports: Hx Diverticulitis Past Surgical History: Reports: Hx Orthopedic Surgery - right hand and left knee - Immunizations Hx Diphtheria, Pertussis, Tetanus Vaccination: Yes Review of Systems - Review of Systems Notes: REVIEW OF SYSTEMS: CONSTITUTIONAL: -fevers, -chills EENT: -eye pain, -difficulty swallowing, -nasal congestion CARDIOVASCULAR: -chest pain, -syncope. RESPIRATORY: -cough, -SOB GASTROINTESTINAL: +epigastric abdominal pain, +nausea, +vomiting, -diarrhea GENITOURINARY: -dysuria, -hematuria MUSCULOSKELETAL: -back pain, -neck pain SKIN: -rash or skin lesions. HEMATOLOGIC: -easy bruising or bleeding. LYMPHATIC: -swollen, enlarged glands. NEUROLOGICAL: -altered mental status or loss of consciousness, -headache, - neurologic symptoms PSYCHIATRIC: -anxiety, -depression. ALL OTHER SYSTEMS REVIEWED AND NEGATIVE. Physical Exam - Vital signs Vitals: Temp Pulse Resp BP Pulse Ox 97.5 F 71 16 149/102 H 98 12/08/17 10:56 12/08/17 10:56 12/08/17 10:56 12/08/17 10:56 12/08/17 10:56 - Notes Notes: PHYSICAL EXAMINATION: GENERAL: Uncomfortable. HEAD: Atraumatic, normocephalic. EYES: Pupils equal round and reactive to light, extraocular movements intact, sclera anicteric, conjunctiva are normal. ENT: nares patent, oropharynx clear without exudates. Moist mucous membranes. NECK: Normal range of motion, supple without lymphadenopathy LUNGS: Breath sounds clear to auscultation bilaterally and equal. No wheezes rales or rhonchi. HEART: Regular rate and rhythm without murmurs ABDOMEN: Soft, moderate epigastric tenderness, normoactive bowel sounds. No guarding, no rebound. No masses appreciated. EXTREMITIES: Normal range of motion, no pitting or edema. No cyanosis. NEUROLOGICAL: Cranial nerves grossly intact. Normal speech, normal gait. Normal sensory and motor exams. PSYCH: Normal mood, normal affect. SKIN: Warm, Dry, normal turgor, no rashes or lesions noted. Course - Re-evaluation Re-evalutation: Patient with epigastric pain, nausea vomiting, similar to his prior pancreatitis episodes. His lipase is elevated at 1900 and he has a leukocytosis , similar to his prior presentation a few months ago. His LFTs have improved and he had a negative MRCP completed during his last hospitalization. After Zofran and fluids, he is no longer feeling nauseous, but his epigastric pain is still present. He is continuing to drink alcohol and suspect that the cause is from alcohol pancreatitis. 12/08/17 15:42 After multiple rounds of IV pain medications, he is still having severe pain and is unable to drink water or ice chips without worsening pain. Due to the leukocytosis, will obtain a CT abdomen pelvis to assess for complications from pancreatitis. Patient requires admission for IV fluids, pain control and nausea control. 12/08/17 16:51 CT A/P shows evidence of pancreatitis, but no complications. Patient still having abdominal pain and nausea and will require inpatient admission for further treatment. 12/08/17 17:15 Spoke to Gerber Lai and she will admit patient as Inpatient to Medical Floor. - Vital Signs Vital signs: Temp Pulse Resp BP Pulse Ox 97.5 F 71 16 149/102 H 98 12/08/17 10:56 12/08/17 10:56 12/08/17 10:56 12/08/17 10:56 12/08/17 10:56 - Laboratory Result Diagrams: 12/08/17 12:55 12/08/17 12:55 Laboratory results interpreted by me: 12/08/17 12/08/17 12/08/17 12:55 12:55 14:08 WBC 15.1 H MCH 33.7 H Seg Neutrophils % 90.1 H Lymphocytes % 5.3 L Absolute Neutrophils 13.6 H Glucose 141 H AST 68 H ALT 75 H Lipase 1990.2 H Urine Protein 100 H Urine Ketones 20 H Urine Blood SMALL H Urine Urobilinogen 2.0 H - Diagnostic Test Radiology reviewed: Image reviewed, Reports reviewed Radiology results interpreted by me: CT A/P: 1. MARKED INFLAMMATORY CHANGES INVOLVING THE HEAD OF THE PANCREAS WITH FLUID IN THE PERIPANCREATIC TISSUES AND EXTENDING INTO THE RIGHT PERICOLIC GUTTER. NO EVIDENCE OF FOCAL FLUID COLLECTION, ABSCESS, OR PSEUDOCYST. 2. FATTY INFILTRATION OF THE LIVER. 3. NO OTHER SIGNIFICANT OR ACUTE FINDING IN THE ABDOMEN OR PELVIS ON CT SCAN WITH IV CONTRAST. Discharge - Discharge Clinical Impression: Acute alcoholic pancreatitis Qualifiers: Acute pancreatitis complication: no infection or necrosis Qualified Code(s): K85.20 - Alcohol induced acute pancreatitis without necrosis or infection Condition: Stable Disposition: ADMITTED INPATIENT Admitting Provider: Shante Ratliff [facility] Unit Admitted: Medical Floor
[2017-12-08 14:44] LABS: APPEARANCE,URINE CLEAR; BILIRUBIN,URINE NEGATIVE (NEGATIVE); COLOR,URINE YELLOW; GLUCOSE, URINE NEGATIVE (NEGATIVE); KETONES,URINE 20 mg/dL (NEGATIVE); LEUKOCYTE ESTERASE,URINE NEGATIVE (NEGATIVE); NITRITE,URINE NEGATIVE (NEGATIVE); PROTEIN,URINE 100 mg/dL (NEGATIVE); URINE SPECIFIC GRAVITY 1.023
[2017-12-08 15:25] LABS: CREATINE KINASE 109 U/L (55-170)
[2017-12-08 15:36] LABS: URINE AMPHETAMINES SCREEN NEGATIVE; URINE BARBITURATES SCREEN NEGATIVE; URINE BENZODIAZEPINES SCREEN UNCONFIRMED POSITIVE; URINE COCAINE SCREEN NEGATIVE; URINE MARIJUANA (THC) SCREEN NEGATIVE; URINE METHADONE SCREEN NEGATIVE; URINE PHENCYCLIDINE SCREEN NEGATIVE
[2017-12-08] MEDS ORDERED: LORAZEPAM INJ 2 MG/1 ML VIAL IV ONE (15:41)
--- NOTE | 2017-12-08 16:45 | RADIOLOGY REPORT (SQ) ---
EXAM DESCRIPTION: CT ABD/PELVIS WITH IV ONLY COMPLETED DATE/TIME: 12/08/2017 4:27 pm REASON FOR STUDY: epigastric pain, leukocytosis, Hi lipase, pseudocy COMPARISON: 11/21/2014. TECHNIQUE: CT scan of the abdomen and pelvis performed using helical scanning technique with dynamic intravenous contrast injection. No oral contrast. Images reviewed with lung, soft tissue, and bone windows. Reconstructed coronal and sagittal MPR images reviewed. Delayed images for evaluation of the urinary system also acquired. All images stored on PACS. All CT scanners at this facility use dose modulation, iterative reconstruction, and/or weight based d osing when appropriate to reduce radiation dose to as low as reasonably achievable (ALARA). [facility]: Dose Right [facility]: CareDose [facility]: Dose Right [facility]: Teradose 4D [facility]: Kaymu CONTRAST TYPE AND DOSE: contrast/concentration: Isovue 370.00 mg/ml; Total Contrast Delivered: 91.0 ml; Total Saline Delivered: 45.0 ml RENAL FUNCTION: BUN 14 creatinine 0.69. RADIATION DOSE: CT Rad equipment meets quality standard of care and radiation dose reduction techniq ues were employed. CTDIvol: 6.2 - 11.8 mGy. DLP: 1187 mGy-cm.. LIMITATIONS: None. FINDINGS: LOWER CHEST: No significant findings. No nodules or infiltrates. LIVER: Normal size. Diffuse fatty infiltration. No masses. No dilated ducts. SPLEEN: Normal size. No focal lesions. PANCREAS: No masses. No significant calcifications. Pancreatic duct not dilated. Prominent inflamma tory changes surrounding the pancreas and extending laterally into the right pericolic gutter. No fo juancarlos fluid collections. GALLBLADDER: No identified stones by CT criteria. No inflammatory changes to suggest cholecystitis. ADRENAL GLANDS: No significant masses or asymmetry. RIGHT KIDNEY AND URETER: No solid masses. No significant calcifications. No hydronephrosis or hyd roureter. LEFT KIDNEY AND URETER: No solid masses. No significant calcifications. No hydronephrosis or hydr oureter. AORTA AND VESSELS: No aneurysm. No dissection. Renal arteries, SMA, celiac without stenosis. RETROPERITONEUM: No retroperitoneal adenopathy, hemorrhage or masses. BOWEL AND PERITONEAL CAVITY: No masses or inflammatory changes. No free fluid or peritoneal masses. APPENDIX: Normal. Fluid surrounding the appendix is due to fluid in the pericolic gutter from the pa ncreatic inflammation. PELVIS: No mass. No free fluid. Normal bladder. ABDOMINAL WALL: No masses. No hernias. BONES: No significant or acute findings. OTHER: No other significant finding. IMPRESSION: 1. MARKED INFLAMMATORY CHANGES INVOLVING THE HEAD OF THE PANCREAS WITH FLUID IN THE PERIPANCREATIC TI SSUES AND EXTENDING INTO THE RIGHT PERICOLIC GUTTER. NO EVIDENCE OF FOCAL FLUID COLLECTION, ABSCESS, OR PSEUDOCYST. 2. FATTY INFILTRATION OF THE LIVER. 3. NO OTHER SIGNIFICANT OR ACUTE FINDING IN THE ABDOMEN OR PELVIS ON CT SCAN WITH IV CONTRAST. TECHNICAL DOCUMENTATION: JOB ID: [id number] Quality ID # [id number]: Final reports with documentation of one or more dose reduction techniques (e.g., Au tomated exposure control, adjustment of the mA and/or kV according to patient size, use of iterative reconstruction technique) 2010 [employer]- All Rights Reserved
[2017-12-08] MEDS ORDERED: DEXTROSE 40% GEL 15 GM TUBE PO PRN ×2 (17:37)
[2017-12-08] MEDS ORDERED: GLUCAGON,HUMAN RECOMB 1 MG INJ SUBCUT PRN (17:37)
[2017-12-08] MEDS ORDERED: DEXTROSE 50%-WATER 25 GM/50 ML DISP.SYRIN IV PRN ×2 (17:37)
[2017-12-08] MEDS ORDERED: NICOTINE 21 MG/24 HR PATCH.TD24 TD PRN (17:49)
[2017-12-08] MEDS: ONDANSETRON HCL INJ/PF 4 MG/2 ML SDV IV PRN (18:01)
[2017-12-08] MEDS: KETOROLAC TROMETHAMINE INJ/PF 30 MG/1 ML SDV IV PRN (18:01)
--- NOTE | 2017-12-08 18:33 | HISTORY AND PHYSICAL E ---
History and Physical NAME: MO SANCHEZ : 1980 AGE: 37Y ADMITTED: 12/08/2017 ROOM: ED19 DATE OF ADMISSION: 12/08/2017. CODE STATUS: FULL CODE. PRIMARY CARE PROVIDER: Not established. CHIEF COMPLAINT: Abdominal pain and nausea. HISTORY OF PRESENT ILLNESS: The patient is a 37-year-old male with a past medical history of alcohol dependency and previous admissions for pancreatitis. The patient presented to the emergency department with a chief complaint of nausea and abdominal pain. The patient gives a 12-hour history of increasing epigastric pain that he associated with previous bouts of pancreatitis. The patient's last drink of alcohol was approximately 12 hours ago, as well. The patient had no evidence of withdrawal at the time of presentation, denied any hematemesis, fevers, chest pain. No shortness of breath, diarrhea, constipation, back pain, or urinary symptoms. Also on presentation to the emergency department, the patient's lipase was found to be 2,[address] of the abdomen and pelvis is suggestive of inflammatory changes within the pancreatic head as well as fatty liver and the patient was given antiemetics in the emergency department, was given a liter bolus, and referred to the hospitalist for admission and management. PAST MEDICAL HISTORY: Remarkable for: 1. Possible diverticulitis. 2. Alcohol dependency. PAST SURGICAL HISTORY: Remarkable for: 1. Right hand surgery. 2. Left knee surgery. SOCIAL HISTORY: The patient is single. He currently resides alone. The patient's surrogate decision maker is his mother. The patient currently smokes about a pack of cigarettes a day. He has smoked about 19 years. The patient admits to daily alcohol use. The least amount he drinks in a day is 3 drinks. The patient does admit to marijuana use, but no other illicit drug use. Denies any IV drug use. ALLERGIES: No known drug allergies. HOME MEDICATIONS: None. FAMILY MEDICAL HISTORY: The patient's father is . He in his 50s of motor vehicle trauma. The patient's mother is alive in her 50s with no known medical problems. The patient does not have children. No siblings. REVIEW OF SYSTEMS: CONSTITUTIONAL: The patient denies any fevers, chills. No dizziness, weakness, but does admit to a loss of appetite. SKIN: The patient denies any diaphoresis, rashing, bruising, or itching. HEENT: Denies any vision changes, hearing loss, nasal drainage, or sore throat. No headaches. CARDIOVASCULAR: Denies any chest pain, edema, or heart palpitations. RESPIRATORY: Denies any shortness of breath, cough, sputum production, or hemoptysis. GASTROINTESTINAL: Denies any bloating, hematemesis, melena, hematochezia. Does admit to nausea and vomiting with 1 episode of diarrhea. GENITOURINARY: No hematuria, pyuria, or dysuria. MUSCULOSKELETAL: Denies any acute or chronic joint pain. NEUROLOGICAL: Denies any seizures, tremors, or loss of consciousness. HEMATOLOGICAL: Denies any eliud bleeding, easy bruising. ENDOCRINE: Denies any recent weight changes. PSYCHIATRIC: Denies any suicidal or homicidal ideation. The rest of the review of the other organ systems is negative. PHYSICAL EXAMINATION: GENERAL: On examination, the patient is a well-developed, well-nourished, 37-year-old male who is awake, alert and oriented to person, place, time and situation. He is verbal, conversational, does not appear to be in any acute distress. VITAL SIGNS: As follows: Temperature is 97.5, pulse 75, respirations 16, blood pressure is 149/102. Oxygen saturation 98% on room air. SKIN: Warm and dry. No rashes, not diaphoretic. HEENT: Pupils equal, round, reactive to light and accommodation. Conjunctivae pink, sclerae anicteric. There are no mouth lesions. JVP is normal. NECK: Supple. No JVD. No palpable lymphadenopathy or thyromegaly. CARDIOVASCULAR SYSTEM: Heart is regular. There is no murmur or rub. CHEST: Clear, symmetrical, unlabored. ABDOMEN: Diffusely tender, but not guarded nor rigid. Bowel sounds are present. BACK: No CVA tenderness or sacral edema. EXTREMITIES: No clubbing, cyanosis, or edema, or peripheral signs of embolization. Posterior pedal pulses are noted bilaterally. PSYCHIATRIC: The patient has an appropriate affect, pleasant mood. DIAGNOSTICS: Lab values are as follows: Hematology obtained on 12/08/2017: WBCs 15.1, hemoglobin 17.0, hematocrit 48.8, platelet count 236,000. Chemistry obtained on 12/08/2017: Sodium is 142, potassium 3.7, chloride 105, carbon dioxide 26, BUN 14, creatinine 0.69, glucose 141, calcium 9.0, bilirubin 0.78, AST 68, ALT 75, alkaline phosphatase 95. Total protein 6.6, albumin 4.3, CK 109, lipase 1,990. Urinalysis obtained on 12/08/2017: Color: Yellow. Appearance: Clear. specific gravity 1.023. Protein 100, glucose negative, ketones 28, occult blood small, nitrite negative, bilirubin negative, urobilinogens 2, leukocyte esterase negative. Toxicology obtained on 12/08/2017: Positive for opiates and benzodiazepine. CT of the abdomen and pelvis obtained on 12/08/2017 reveals more inflammatory changes involving the head of the pancreas with fluid in the peripancreatic tissue into the right pericolic gutter. No evidence of fluid collection, abscess, or pseudocyst. Evidence of fatty infiltration of the liver. IMPRESSION AND PLAN: 1. Acute alcoholic pancreatitis. Will hydrate the patient. Repeat lipase in the a.m. Maintain n.p.o. status and follow. 2. Alcohol dependency. Will supplement the patient's B vitamins. Additionally, will add IV Ativan as part of [facility] protocol and follow. 3. Hypertension. The patient does not have a formal diagnosis of hypertension. Most likely this is pain response. Will treat the patient's pain and monitor accordingly. 4. Tobacco dependency, continuous. Spent 3 minutes discussing smoking cessation education. Patient declines any pharmacological intervention at this time, but does agree to p.r.n. nicotine patch. 5. Fatty Liver. Most likely due to ETOH. Will begin vitamin E therapy. DISPOSITION: The patient is a full code. We will admit the patient to inpatient medical as the patient's expected length of stay should surpass 2 midnights. TIME SPENT: On this admission including assessment, plan, physical examination, patient education, and review of records, is 45 minutes. DICTATING PHYSICIAN: LORENZO WILBURN NP [id number] PHY#: [id number] ID: [id number] JOB#: [id number] ACCT: [id number] cc:JALEESA LAUREN M.D. > ADDI
[2017-12-08] MEDS ORDERED: NORMAL SALINE 1000 ML 1,000 ML with POTASSIUM CHLORIDE 20 MEQ, MAGNESIUM SULFATE 8 MEQ,... IV SCH ×5 (22:00)
[2017-12-08] MEDS ORDERED: METOCLOPRAMIDE HCL ORAL SOLN 10 MG/10 ML UDCUP PO ONE (22:25)
[2017-12-08] MEDS ORDERED: LIDOCAINE 2% VISCOUS SOLN 20 ML UDCUP PO ONE (22:25)
[2017-12-08] MEDS ORDERED: MAG HYDROX/AL HYDROX/SIMETH SUSP 30 ML UDCUP PO ONE (22:25)
[2017-12-09] MEDS: KETOROLAC TROMETHAMINE INJ/PF 30 MG/1 ML SDV IV PRN ×4 (00:02→18:19)
[2017-12-09] MEDS: PROMETHAZINE HCL 25 MG TABLET PO PRN (03:53)
[2017-12-09 05:33] LABS: HEMATOCRIT 42.6 % (37.9-51.0); MEAN CORPUSCULAR HEMOGLOBIN 33.8 pg (27.0-33.4); MEAN CORPUSCULAR HGB CONC 34.7 g/dL (32.0-36.0); MEAN CORPUSCULAR VOLUME 97 fl (80-97); PLATELET COUNT 185 10^3/uL (150-450); RED BLOOD COUNT 4.37 10^6/uL (4.35-5.55); RED CELL DISTRIBUTION WIDTH 13.2 % (11.5-14.0); WHITE BLOOD COUNT 11.9 10^3/uL (4.0-10.5)
[2017-12-09 05:46] LABS: HEMOGLOBIN 14.8 g/dL (13.5-17.0)
[2017-12-09 05:51] LABS: ANION GAP 8 (5-19); BLOOD UREA NITROGEN 10 mg/dL (7-20); CALCIUM 8.8 mg/dL (8.4-10.2); CARBON DIOXIDE 23 mmol/L (22-30); CHLORIDE 108 mmol/L (98-107); GLUCOSE 112 mg/dL (75-110); LIPASE 1905.3 U/L (23-300); MAGNESIUM 1.9 mg/dL (1.6-2.3); POTASSIUM 3.9 mmol/L (3.6-5.0)
[2017-12-09] MEDS: LORAZEPAM INJ 2 MG/1 ML VIAL IV PRN ×2 (12:32→18:20)
[2017-12-09] MEDS: NORMAL SALINE 1000 ML 1,000 ML IV PRN (13:02)
--- NOTE | 2017-12-09 18:28 | PROGRESS NOTE E ---
Progress Note NAME: MO SANCHEZ : 1980 AGE: 37Y DATE: 12/09/2017 ROOM: 532 SUBJECTIVE: The patient is currently laying in bed. He states that he is having ongoing pain. The patient denies any nausea or vomiting, but just specific epigastric pain. The patient has had no episode of hematemesis or melena. No hematochezia. The patient is shaky at this time. The patient feels that he is stable from this standpoint and the patient does not voice any other concerns at this time. REVIEW OF SYSTEMS: The rest of the review of systems is negative. MEDICATIONS: Medications have been reviewed. OBJECTIVE: GENERAL: The patient is a 37-year-old male who is awake and alert. He is oriented to person, place, time and situation. He is verbal, conversational, and does not appear to be in any acute distress. VITAL SIGNS: Temperature 98.0, pulse 82, respirations 18, blood pressure 147/83, oxygen saturation 99% on room air. SKIN: Warm and dry. No rashes. Not diaphoretic. HEENT: Pupils equal, round, reactive to light and accommodation. Conjunctivae pink. No evidence of JVP. HEART: Regular. There is no murmur or rub. CHEST: Clear, symmetrical, nonlabored. ABDOMEN: Soft, nontender, nondistended. BACK: No CVA tenderness. EXTREMITIES: No cyanosis, clubbing or edema. PSYCHIATRIC: Appropriate affect. Pleasant mood. DIAGNOSTICS: Lab values are as follows. 1. Hematology obtained on 12/09/2017, WBC 11.9, hemoglobin 14.8, hematocrit 42.6, platelet count is 185,000. 2. Chemistry obtained on 12/09/2017, sodium 139, potassium 2.9, chloride 108, carbon dioxide 23, BUN 10, creatinine 0.68, glucose 112, calcium 8.8, magnesium 1.9, lipase is 1905. ASSESSMENT AND PLAN: 1. ACUTE ALCOHOLIC PANCREATITIS. Will continue the patient's regimen of hydration, nothing by mouth, will allow ice chips though. Repeat lipase in the morning. The patient is getting Toradol for pain. Will additionally add oxycodone given that the patient does have high blood pressures associated with his pain. 2. ALCOHOL DEPENDENCY, CONTINUOUS. Will continue the patient's B vitamins as well as add intravenous Ativan as part of the [facility] [place] [facility]drawal [facility] for Alcohol protocol. 3. HYPERTENSION. The patient does not have a formal diagnosis of this. I feel that this is a pain response. 4. TOBACCO DEPENDENCY, CONTINUOUS. Will continue as needed nicotine patch. DISPOSITION: The patient is a FULL CODE. Pending the patient's symptomatology and diagnostic findings, we will reevaluate in the morning for discharge. TIME SPENT: Time spent on this followup including assessment and plan, physical examination, patient education, review of records was 25 minutes. DICTATING PHYSICIAN: LORENZO WILBURN NP [id number] PHY#: [id number] ID: [id number] JOB#: [id number] ACCT: [id number] cc: > MTDD
[2017-12-09] MEDS: OXYCODONE HCL IR 5 MG TABLET PO PRN (21:46)
[2017-12-10] MEDS: KETOROLAC TROMETHAMINE INJ/PF 30 MG/1 ML SDV IV PRN ×3 (01:28→19:48)
[2017-12-10] MEDS: PROMETHAZINE HCL 25 MG TABLET PO PRN (01:28)
[2017-12-10] MEDS: ONDANSETRON HCL INJ/PF 4 MG/2 ML SDV IV PRN ×2 (04:48→19:48)
[2017-12-10 04:54] LABS: HEMATOCRIT 40.4 % (37.9-51.0); HEMOGLOBIN 14.4 g/dL (13.5-17.0); MEAN CORPUSCULAR HEMOGLOBIN 34.3 pg (27.0-33.4); MEAN CORPUSCULAR HGB CONC 35.7 g/dL (32.0-36.0); MEAN CORPUSCULAR VOLUME 96 fl (80-97); PLATELET COUNT 157 10^3/uL (150-450); RED CELL DISTRIBUTION WIDTH 13.2 % (11.5-14.0); WHITE BLOOD COUNT 8.4 10^3/uL (4.0-10.5)
[2017-12-10 05:26] LABS: ALANINE AMINOTRANSFERASE 49 U/L (21-72); ALBUMIN 3.6 g/dL (3.5-5.0); ALKALINE PHOSPHATASE 78 U/L (38-126); ANION GAP 11 (5-19); ASPARTATE AMINO TRANSFERASE 31 U/L (17-59); BILIRUBIN,DIRECT 0.3 mg/dL (0.0-0.4); BILIRUBIN,TOTAL 1.2 mg/dL (0.2-1.3); BLOOD UREA NITROGEN 8 mg/dL (7-20); CALCIUM 8.9 mg/dL (8.4-10.2); CARBON DIOXIDE 24 mmol/L (22-30); CHLORIDE 105 mmol/L (98-107); GLUCOSE 82 mg/dL (75-110); LIPASE 912.2 U/L (23-300); MAGNESIUM 1.8 mg/dL (1.6-2.3); POTASSIUM 3.8 mmol/L (3.6-5.0); SODIUM 139.7 mmol/L (137-145); TOTAL PROTEIN 5.5 g/dL (6.3-8.2)
[2017-12-10] MEDS: OXYCODONE HCL IR 5 MG TABLET PO PRN ×3 (08:18→23:00)
--- NOTE | 2017-12-10 09:13 | PROGRESS NOTE E ---
Progress Note NAME: MO SANCHEZ : 1980 AGE: 37Y DATE: 12/10/2017 ROOM: 532 SUBJECTIVE: The patient is currently lying in bed. He states he feels a little better than he did yesterday. His pain has improved. The patient does want to proceed with clear liquids. The patient denies any nausea, vomiting, diarrhea. No shortness of breath, dizziness, chest pain. No fevers, chills. Still has epigastric pain but overall is improving. Additionally, the patient is slightly tremulous but he states this is his baseline. He feels no symptoms of DTs at this time. BRIEF HISTORY: The patient is a 37-year-old male with a past medical history of alcoholic pancreatitis that is known to the hospitalist service. The patient was admitted on 12/08/2017 due to alcohol related pancreatitis. CT scan did reveal inflammation of the area. The patient's lipase was elevated at near 2000 but a slight elevation of white count of 15,000. The patient was afebrile. The patient came to the emergency department because he related his symptoms to pancreatitis. The patient is 72 hours out from his last drink without evidence of DTs. The patient has only required a few doses of Ativan. He is being supplemented B vitamins. The patient's lipase trended down nicely today to 900. He will be started on clear liquids and monitored for this and the patient has received both alcohol and tobacco counseling. REVIEW OF SYSTEMS: The rest of the review of systems is negative. MEDICATIONS: Medications have been reviewed. OBJECTIVE: GENERAL: The patient is a 37-year-old male who is awake and alert to person, place, time and situation. He is verbal, conversational, and does not appear to be in any acute distress. VITAL SIGNS: Temperature 97.6, pulse 74, respirations 14, blood pressure 140/78, oxygen saturation 98% on room air. SKIN: Warm and dry. No rashes. Not diaphoretic. HEENT: Pupils equal, round, reactive to light and accommodation. Conjunctivae pink. No evidence of JVP. HEART: Regular. There is no murmur or rub. CHEST: Clear, symmetrical, nonlabored. ABDOMEN: Soft, nontender, nondistended. BACK: No CVA tenderness, sacral edema. EXTREMITIES: No clubbing, cyanosis, edema. PSYCHIATRIC: Appropriate affect. Pleasant mood. DIAGNOSTICS: Lab values are as follows: Hematology obtained on 12/10/2017, WBC 8.4, hemoglobin 14.4, hematocrit 40.4, platelet count is 157,000. Chemistry obtained on 12/10/2017, sodium 139, potassium 2.8, chloride 105, carbon dioxide 24, BUN 8, creatinine 0.67, glucose 82, calcium 8.9, magnesium 1.8, bilirubin is 1.2, AST 31, ALT 41, alk phos 78, CK 109, total protein 5.5, albumin 3.6. Lipase is 900. IMPRESSION AND PLAN: 1. ACUTE ALCOHOLIC PANCREATITIS. The patient's symptoms are improving significantly. Continue current pain management regimen as the patient's pain is bearable. Repeat lipase in the a.m. If this continues to trend down in spite of the patient starting clear liquids today, he most likely can be discharged. 2. ALCOHOL DEPENDENCY, CONTINUOUS. Continue to supplement the patient's B vitamins. He has not required much in the way of benzodiazepines as part of the [facility] protocol. 3. HYPERTENSION. The patient does not have a formal diagnosis of this. I do believe it is a pain response as this has improved with the patient's condition without direct treatment. 4. TOBACCO DEPENDENCY, CONTINUOUS. Will continue p.r.n. nicotine patch. 5. FATTY LIVER. Most likely this is related to his alcohol intake. Have begun high dose vitamin E therapy. Hopefully, this will improve with diligent abstinence. DISPOSITION: The patient is a FULL CODE. Pending the patient's symptomatology and diagnostic findings, we will reevaluate in the morning for possible discharge. TIME SPENT: Time spent on this followup including assessment and plan, physical examination, patient education, and review of records was 25 minutes. ADDENDUM: Patient was unable to tolerated clear liquids. Resumed NPO status. DICTATING PHYSICIAN: LORENZO WILBURN NP [id number] PHY#: [id number] ID: [id number] JOB#: [id number] ACCT: [id number] cc: > [facility]
[2017-12-10] MEDS: THIAMINE HCL 100 MG TABLET PO SCH (10:10)
[2017-12-10] MEDS: FOLIC ACID 1 MG TABLET PO SCH (10:10)
[2017-12-10] MEDS: LORAZEPAM INJ 2 MG/1 ML VIAL IV PRN ×3 (10:11→23:00)
[2017-12-10] MEDS ORDERED: GLUCAGON,HUMAN RECOMB 1 MG INJ SUBCUT PRN (13:34)
[2017-12-10] MEDS ORDERED: DEXTROSE 50%-WATER 25 GM/50 ML DISP.SYRIN IV PRN ×2 (13:34)
[2017-12-10] MEDS ORDERED: DEXTROSE 40% GEL 15 GM TUBE PO PRN ×2 (13:34)
[2017-12-10] MEDS: VITAMIN E (DL, ACETATE) 400 UNIT CAPSULE PO SCH (17:45)
[2017-12-10] MEDS: NORMAL SALINE 1000 ML 1,000 ML IV PRN (23:02)
[2017-12-11] MEDS: KETOROLAC TROMETHAMINE INJ/PF 30 MG/1 ML SDV IV PRN ×2 (02:01→11:15)
[2017-12-11 04:53] LABS: HEMATOCRIT 42.2 % (37.9-51.0); HEMOGLOBIN 15.1 g/dL (13.5-17.0); MEAN CORPUSCULAR HEMOGLOBIN 34.6 pg (27.0-33.4); MEAN CORPUSCULAR HGB CONC 35.8 g/dL (32.0-36.0); MEAN CORPUSCULAR VOLUME 97 fl (80-97); PLATELET COUNT 175 10^3/uL (150-450); RED BLOOD COUNT 4.38 10^6/uL (4.35-5.55); RED CELL DISTRIBUTION WIDTH 12.8 % (11.5-14.0)
[2017-12-11 05:25] LABS: ANION GAP 13 (5-19); BLOOD UREA NITROGEN 13 mg/dL (7-20); CALCIUM 9.3 mg/dL (8.4-10.2); CARBON DIOXIDE 21 mmol/L (22-30); CHLORIDE 106 mmol/L (98-107); GLUCOSE 72 mg/dL (75-110); LIPASE 495.6 U/L (23-300); MAGNESIUM 1.8 mg/dL (1.6-2.3); POTASSIUM 3.5 mmol/L (3.6-5.0)
[2017-12-11] MEDS: LORAZEPAM INJ 2 MG/1 ML VIAL IV PRN ×2 (06:51→11:00)
[2017-12-11] MEDS: OXYCODONE HCL IR 5 MG TABLET PO PRN ×2 (06:51→12:53)
[2017-12-11] MEDS: NORMAL SALINE 1000 ML 1,000 ML IV PRN (06:53)
[2017-12-11] MEDS ORDERED: POTASSIUM CHLORIDE 10 MEQ TABLET.SA PO ONE (08:30)
[2017-12-11] MEDS: THIAMINE HCL 100 MG TABLET PO SCH (11:01)
[2017-12-11] MEDS: FOLIC ACID 1 MG TABLET PO SCH (11:01)
[2017-12-11] MEDS: VITAMIN E (DL, ACETATE) 400 UNIT CAPSULE PO SCH (11:01)
[2017-12-11 13:21] VITALS: BP 149/87
--- NOTE | 2017-12-11 16:51 | PDOC DISCHARGE SUMMARY ---
General - Admit/Disc Date/PCP Admission Date/Primary Care Provider: 12/08/17 17:29 Discharge Date: 12/11/17 - Discharge Diagnosis (1) Acute alcoholic pancreatitis Is this a current diagnosis for this admission?: Yes (2) Alcohol dependence Is this a current diagnosis for this admission?: Yes (3) Alcoholic fatty liver Is this a current diagnosis for this admission?: Yes (4) Tobacco dependence Is this a current diagnosis for this admission?: Yes (5) Transaminitis Is this a current diagnosis for this admission?: Yes - Additional Information Home Medications: No Home Medications 08/14/17 History of Present Illness History of Present Illness: MO SANCHEZ is a 37 year old male. The patient is a 37-year-old male who has a past medical history of alcohol dependency. He has had a previous admission for acute pancreatitis. Patient presented with nausea and abdominal pain. He did not have any hematemesis or fevers. His lipase upon admission was 2000. CT scan was suggestive of pancreatitis. He was given IV fluids and referred for admission. Hospital Course Hospital Course: Patient was admitted for acute alcoholic pancreatitis. Initially, he was made n.p.o. On 12/10/2017 the patient had recurrent pain after being given clear liquids. Therefore, he did not have any oral intake yesterday. He was continued on IV fluids. Today, we did advance the diet to clears. The patient left AGAINST MEDICAL ADVICE. He told me that he has a job in [place] that he needs to travel to. I explained that pancreatitis is a serious condition and can be life-threatening. I told the patient that he should stay to complete therapy and not leave the hospital until he was tolerating solid foods. I was later informed by the nurse that he signed paperwork and left AGAINST MEDICAL ADVICE. Prior to this the nurse did once again reiterate the life-threatening nature of pancreatitis. During our conversation this morning I did staff genetic counselor the patient on his use of alcohol. He does agree to seek therapy through [facility]. Physical Exam Vital Signs: Temp Pulse Resp BP Pulse Ox 98.3 F 84 18 149/87 H 97 12/11/17 12:10 12/11/17 12:10 12/11/17 12:10 12/11/17 12:10 12/11/17 12:10 Intake & Output 12/10/17 12/11/17 12/12/17 06:59 06:59 06:59 Intake Total 1570 3840 Balance 1570 3840 Weight 79.7 kg Additional comments: The patient appears to be his stated age. He appears to be mildly distressed due to pain. His facial appearance is unremarkable. His lungs are noted to be clear to auscultation bilaterally. His cardiac exam is regular without murmurs , gallops or rubs. The abdomen is soft. The patient does have pain over the mid epigastric region with moderate palpation. Otherwise, the exam is fairly benign. The lower extremities are unremarkable. No pitting edema is present. The skin is clean, warm, dry and intact. Results Laboratory Results: 12/11/17 03:53 12/11/17 03:53 12/11/17 12/11/17 03:53 03:53 WBC 7.0 RBC 4.38 Hgb 15.1 Hct 42.2 MCV 97 MCH 34.6 H MCHC 35.8 RDW 12.8 Plt Count 175 Sodium 140.0 Potassium 3.5 L Chloride 106 Carbon Dioxide 21 L Anion Gap 13 BUN 13 Creatinine 0.70 Est GFR ( Amer) > 60 Est GFR (Non-Af Amer) > 60 Glucose 72 L Calcium 9.3 Magnesium 1.8 Lipase 495.6 H Impressions: Abdomen/Pelvis CT 12/08/17 15:40 IMPRESSION: 1. MARKED INFLAMMATORY CHANGES INVOLVING THE HEAD OF THE PANCREAS WITH FLUID IN THE PERIPANCREATIC TISSUES AND EXTENDING INTO THE RIGHT PERICOLIC GUTTER. NO EVIDENCE OF FOCAL FLUID COLLECTION, ABSCESS, OR PSEUDOCYST. 2. FATTY INFILTRATION OF THE LIVER. 3. NO OTHER SIGNIFICANT OR ACUTE FINDING IN THE ABDOMEN OR PELVIS ON CT SCAN WITH IV CONTRAST.
== END 2017-12-11 14:22 | disposition left against medical advice (07) | DRG 439 ==
LOC: ER 10:50 → EH 17:29 → 5 12-09 02:14
PROVIDERS: ADMIT Emergency Medicine; ATTEND Emergency Medicine
DX: K85.20 Alcohol induced acute pancreatitis without necrosis or infection (principal); F10.288 Alcohol dependence with other alcohol-induced disorder; K70.0 Alcoholic fatty liver; R03.0 Elevated blood-pressure reading, without diagnosis of hypertension; F17.210 Nicotine dependence, cigarettes, uncomplicated; Z60.2 Problems related to living alone; Z28.21 Immunization not carried out because of patient refusal
CPT/HCPCS: 36415; 74177; 80048; 80053; 80307; 81001; 82550; 83690; 83735; 85025; 85027; 96361; 96374; 96375; 96376; 99285; J1170; J1885; J2060; J2405; J3411; J3475; J3480; J3490; J7030

== ENCOUNTER 2018-09-27 05:10 | Emergency (ER) | payer SELFPAY ==
[2018-09-27] MEDS ORDERED: ONDANSETRON HCL INJ/PF 4 MG/2 ML SDV IV ONE (05:36)
[2018-09-27] MEDS ORDERED: HYDROMORPHONE HCL INJ/PF 2 MG/ML AMPULE IV ONE ×2 (05:36→06:21)
--- NOTE | 2018-09-27 05:38 | ER Document Report ---
Doctor's Note Notes: 09/27/18 05:37 Performed a quick [employer] evaluation of the patient. Patient is a 38-year-old male who presents with complaint of epigastric and upper abdominal pain. Some nausea and vomiting. No fevers. No diarrhea. Patient has a history of pancreatitis whenever he drinks alcohol. He said he went on a week of binge drinking and now he has the pain. He did use some cocaine earlier in the week. No cocaine since then. No chest pain or shortness of breath. No associated fevers. He still has a gallbladder but has never had any gallbladder issues. Patient has some obvious discomfort. His pain is in upper abdomen to palpation is worse over the epigastric region. Lower abdomen is nontender. I have ordered a CBC, CMP, lipase, pain medicine, fluids, and nausea medicine. Dictation of this chart was performed using voice recognition software; therefore, there may be some unintended grammatical errors. 09/27/18 05:37 09/27/18 05:38
[2018-09-27] MEDS ORDERED: NORMAL SALINE 1000 ML 1,000 ML IV ONE (05:39)
--- NOTE | 2018-09-27 06:19 | ER Document Report ---
ED General - General Chief Complaint: Abdominal Pain Stated Complaint: ABDOMINAL PAIN Time Seen by Provider: 09/27/18 05:36 Notes: Patient is a 38-year-old male with past history of pancreatitis that presents to the emergency department for chief complaint of epigastric abdominal pain. Patient reports that over the past 5 days he went on an alcoholic binge, and he started having epigastric abdominal pain yesterday towards the end of the day, that seemed to worsen into this morning, he had associated nausea, one episode of vomiting. He states he had a similar episode approximately 8 months ago, where he was admitted for acute pancreatitis. He states that it was worse at that time. He describes his pain however at this time is an 8 out of 10 describes as a sharp and stabbing pain in his epigastric region of his abdomen. He denies any lower abdominal pain. Denies any diarrhea, dysuria, hematuria, fevers, chills, chest pain or shortness of breath. Past Medical History: History of pancreatitis Past Surgical History: Hand and knee surgery Social History: Admits to smoking cigarettes, and alcohol use, he also admits to occasional cocaine use, but states he has not used cocaine in several weeks. Family History: Reviewed and noncontributory for presenting illness Allergies: Reviewed, see documented allergy list. REVIEW OF SYSTEMS: Other than noted above, the 12 point review of systems was reviewed with the patient and were negative, all pertinent findings are included in the HPI. PHYSICAL EXAMINATION: Vital signs reviewed, nursing noted reviewed. GENERAL: Well-appearing, well-nourished and appears uncomfortable HEAD: Atraumatic, normocephalic. EYES: Eyes appear normal, extraocular movements intact, sclera anicteric, conjunctiva are normal. ENT: nares patent, oropharynx clear without exudates. Moist mucous membranes. NECK: Normal range of motion, supple without lymphadenopathy LUNGS: Breath sounds clear to auscultation bilaterally and equal. No wheezes rales or rhonchi. HEART: Regular rate and rhythm without murmurs ABDOMEN: Soft, epigastric tenderness with palpation, normoactive bowel sounds. No rebound, guarding, or rigidity. No masses appreciated. EXTREMITIES: Nontender, good range of motion, no pitting or edema. NEUROLOGICAL: No focal neurological deficits. Moves all extremities spontaneously Motor and sensory grossly intact on exam. PSYCH: Normal mood, normal affect. SKIN: Warm, Dry, normal turgor, no rashes or lesions noted on exposed skin TRAVEL OUTSIDE OF THE [place] IN LAST 30 DAYS: No - Related Data Allergies/Adverse Reactions: No Known Allergies Allergy (Verified 12/08/17 10:50) Past Medical History - Social History Smoking Status: Current Every Day Smoker Chew tobacco use (# tins/day): No Frequency of alcohol use: Heavy Drug Abuse: Cocaine Family History: Reviewed & Not Pertinent Patient has suicidal ideation: No Patient has homicidal ideation: No Renal/ Medical History: Denies: Hx Peritoneal Dialysis GI Medical History: Reports: Hx Diverticulitis Past Surgical History: Reports: Hx Orthopedic Surgery - right hand and left knee - Immunizations Hx Diphtheria, Pertussis, Tetanus Vaccination: Yes Physical Exam - Vital signs Vitals: Temp Pulse Resp BP Pulse Ox 97.6 F 90 18 142/91 H 98 09/27/18 05:14 09/27/18 05:14 09/27/18 05:14 09/27/18 05:14 09/27/18 05:14 Course - Re-evaluation Re-evalutation: Patient seen and examined vital signs reviewed. Laboratory data and imaging were ordered as appropriate for the patient's presenting symptoms and complaint, with consideration of any critical or life threatening conditions that may be associated with their obtained history and exam as noted above. Patient was treated with IV fluids, Dilaudid, Zofran Results were reviewed when available and demonstrated mild elevation in lipase, and no leukocytosis, no acidosis, renal function intact, no transaminitis, since his blood work was unremarkable with the exception of his mildly elevated lipase, which upon reviewing past data, the patient and his last presentation, had lipase levels in the thousands, and was discharged with a lipase around 400 , which he is currently having now. I discussed with the patient will give him additional fluids, and some pain medication, and see if he can tolerate p.o., and if he can, we will discharge him home, with pain medication, antiemetics, and advised a bland diet, advance slowly from a clear liquid, to a soft diet, if his pain worsened at home to return to the emergency department, patient agreeable to this plan of care. The patient was re-evaluated and was improved Evaluation was most consistent with pancreatitis Results were discussed with the patient at this point, after careful consideration I feel that that patient can be discharged from the emergency department, the patient was educated treatments and reasons to return to the emergency department based on their presumed diagnosis as noted above, they were advised to followup with a primary care physician in 2-3 days. Patient was agreeable to plan of care. *Note is created using voice recognition software and may contain spelling, syntax or grammatical errors. Laboratory 09/27/18 09/27/18 06:02 06:02 WBC 5.8 RBC 5.13 Hgb 17.1 H Hct 47.9 MCV 93 MCH 33.3 MCHC 35.7 RDW 12.6 Plt Count 264 Seg Neutrophils % 76.5 Lymphocytes % 14.3 Monocytes % 7.0 Eosinophils % 1.8 Basophils % 0.4 Absolute Neutrophils 4.4 Absolute Lymphocytes 0.8 Absolute Monocytes 0.4 Absolute Eosinophils 0.1 Absolute Basophils 0.0 Sodium 143.6 Potassium 4.2 Chloride 101 Carbon Dioxide 32 H Anion Gap 11 BUN 10 Creatinine 0.85 Est GFR ( Amer) > 60 Est GFR (Non-Af Amer) > 60 Glucose 126 H Calcium 10.0 Total Bilirubin 1.2 Direct Bilirubin 0.4 Neonat Total Bilirubin Not Reportable Neonat Direct Bilirubin Not Reportable Neonat Indirect Bili Not Reportable AST 26 ALT 34 Alkaline Phosphatase 101 Total Protein 8.1 Albumin 4.7 Lipase 442.1 H - Vital Signs Vital signs: Temp Pulse Resp BP Pulse Ox 97.6 F 90 18 142/91 H 98 09/27/18 05:14 09/27/18 05:14 09/27/18 05:14 09/27/18 05:14 09/27/18 05:14 - Laboratory Result Diagrams: 09/27/18 06:02 09/27/18 06:02 Laboratory results interpreted by me: 09/27/18 09/27/18 06:02 06:02 Hgb 17.1 H Carbon Dioxide 32 H Glucose 126 H Lipase 442.1 H Discharge - Discharge Clinical Impression: Acute pancreatitis Qualifiers: Pancreatitis type: alcohol induced Acute pancreatitis complication: unspecified Qualified Code(s): K85.20 - Alcohol induced acute pancreatitis without necrosis or infection Condition: Stable Disposition: HOME, SELF-CARE Instructions: Pancreatitis ([facility]) Additional Instructions: Please return to the emergency department if you have any worsening, or concern of your symptoms. Please return to the emergency department if you develop chest pain, difficulty breathing, severe abdominal pain, or ongoing vomiting. Please follow-up with your primary care physician in 2-3 days and any other recommended physicians. If prescribed, take all medications as directed. If you have any questions or concerns do not hesitate to return the emergency department for evaluation. Prescriptions: Ondansetron [Zofran Odt 4 mg Tablet] 1 tab PO Q8H PRN #15 tab.rapdis PRN Reason: For Nausea/Vomiting Oxycodone HCl [Oxycontin Ir 5 Mg Tablet] 1 mg PO Q6H PRN #15 tablet PRN Reason: abdominal pain Referrals: YANET SAHA MD [ACTIVE STAFF] - Follow up in 3-5 days (or your primary care physician )
[2018-09-27 06:27] LABS: ABSOLUTE EOSINOPHILS # (AUTO) 0.1 10^3/uL (0.0-0.6); ABSOLUTE LYMPHOCYTES (AUTO) 0.8 10^3/uL (0.5-4.7); ABSOLUTE MONOCYTES (AUTO) 0.4 10^3/uL (0.1-1.4); ABSOLUTE NEUT (AUTO) 4.4 10^3/uL (1.7-8.2); BASOPHILS % (AUTO) 0.4 % (0-2); EOSINOPHILS % (AUTO) 1.8 % (0-6); HEMATOCRIT 47.9 % (37.9-51.0); HEMOGLOBIN 17.1 g/dL (13.5-17.0); LYMPHOCYTES % (AUTO) 14.3 % (13-45); MEAN CORPUSCULAR HEMOGLOBIN 33.3 pg (27.0-33.4); MEAN CORPUSCULAR HGB CONC 35.7 g/dL (32.0-36.0); MEAN CORPUSCULAR VOLUME 93 fl (80-97); PLATELET COUNT 264 10^3/uL (150-450); RED BLOOD COUNT 5.13 10^6/uL (4.35-5.55); RED CELL DISTRIBUTION WIDTH 12.6 % (11.5-14.0); SEGMENTED NEUTROPHILS % (AUTO) 76.5 % (42-78); TOTAL CELLS COUNTED % (AUTO) 100 %; WHITE BLOOD COUNT 5.8 10^3/uL (4.0-10.5)
[2018-09-27 06:34] LABS: ALANINE AMINOTRANSFERASE 34 U/L (21-72); ALBUMIN 4.7 g/dL (3.5-5.0); ALKALINE PHOSPHATASE 101 U/L (38-126); ANION GAP 11 (5-19); ASPARTATE AMINO TRANSFERASE 26 U/L (17-59); BILIRUBIN,DIRECT 0.4 mg/dL (0.0-0.4); BILIRUBIN,TOTAL 1.2 mg/dL (0.2-1.3); BLOOD UREA NITROGEN 10 mg/dL (7-20); CARBON DIOXIDE 32 mmol/L (22-30); CHLORIDE 101 mmol/L (98-107); GLUCOSE 126 mg/dL (75-110); LIPASE 442.1 U/L (23-300); POTASSIUM 4.2 mmol/L (3.6-5.0); SODIUM 143.6 mmol/L (137-145); TOTAL PROTEIN 8.1 g/dL (6.3-8.2)
[2018-09-27] MEDS ORDERED: RINGERS SOLUTION,LACTATED 1,000 ML IV ONE (06:45)
[2018-09-27] MEDS ORDERED: FAMOTIDINE INJ/PF 20 MG/2 ML SDV IV ONE (06:46)
[2018-09-27 08:12] VITALS: BP 132/92
== END 2018-09-27 08:10 | disposition home or self-care (01) ==
LOC: ER 05:10
DX: K85.20 Alcohol induced acute pancreatitis without necrosis or infection (principal); R10.13 Epigastric pain; R11.2 Nausea with vomiting, unspecified; F14.929 Cocaine use, unspecified with intoxication, unspecified; Z72.89 Other problems related to lifestyle; F17.210 Nicotine dependence, cigarettes, uncomplicated
CPT/HCPCS: 96376; 99284; 96361; 96374; 96375; 36415; 83690; 85025; 80053; J1170; J2405; J7030; J7120; S0028